=== PATIENT | female | born 1990 | race Caucasian/White ===

== ENCOUNTER 2019-06-19 14:14 | Emergency (ER) | payer OTHER, SELFPAY ==
[2019-06-19 14:20] VITALS: BP 119/73; PULSE 83; RESP 18; TEMP 36.9; O2SAT 99
--- NOTE | 2019-06-19 14:28 | DI.RAD.S_ITS ---
PROCEDURE: XR CHEST 1V INDICATIONS: SOB, palpitation TECHNIQUE: One view of the chest was acquired. COMPARISON: None. FINDINGS: Surgical changes and devices: None. Lungs and pleura: Lungs are clear. No pleural effusions or pneumothorax. There appears to be a calcified nodule within left upper lobe. Mediastinum: Mediastinal contours appear normal. Heart size is normal. Bones and chest wall: No suspicious bony lesions. Overlying soft tissues appear unremarkable. IMPRESSION: 1. No acute cardiopulmonary process is evident. 2. Calcified left upper lobe pulmonary nodule appears to be present. Dictated by: Dano Clarke M.D. on 06/19/2019 at 14:25 Approved by: Dano Clarke M.D. on 06/19/2019 at 14:25
--- NOTE | 2019-06-19 14:43 | ED.CHESTPAIN ---
HPI - Chest Pain <RENEE Nelson - Last Filed: 06/19/19 21:38> General Chief Complaint: Chest Pain Stated Complaint: chest/back/abd head pain Time Seen by Provider: 06/19/19 14:17 Source: patient Mode of arrival: Ambulatory History of Present Illness HPI narrative: 29yo female presents emergency department complaining of palpitation and shortness of breath at night starting the past 3 days. She states she was seen at [facility] on and Thursday, labs were drawn and chest x-ray was performed, she states ?I was discharged with medication that lines the stomach. She denies any worsening or changes to her symptoms states they have continued. Denies any scheduled follow-up. Patient states she feels like my heart is beating really fast and then suddenly slows down. Patient states the symptoms are worse with walking around and better with sitting down and resting. Patient states she wakes up in the middle night complaining of shortness of breath that is resolved when she sits up. She was being treated for a sinus infection last week, she states she finished her last pill amoxicillin today, she reports her sinus congestion, sore throat, and cough have resolved. She denies any fevers, chest pain, shortness of breath at this time, history of respiratory illnesses, nausea, vomiting, diarrhea, or other concerns. Patient denies any history of blood clots, she does not take any hormonal control pills, she is not a smoker. Review of Systems <RENEE Nelson - Last Filed: 06/19/19 21:38> Review of Systems Narrative: REVIEW OF SYSTEMS: GENERAL: Denies fever or chills. HENT: No head trauma, hearing loss or sore throat. EYES: No vision changes. CARDIOVASCULAR: Complains of ?has heart rate coat see HPI. RESPIRATORY: No shortness of breath or cough. GASTROINTESTINAL: No nausea, vomiting, diarrhea, or constipation. GENITOURINARY: No flank pain or dysuria. MUSCULOSKELETAL: No pain, weakness, or deformities. INTEGUMENTARY: No rash, lesions, or pruritus. NEURO: No numbness, tingling, memory loss, or confusion. PSYCH: No behavior or mood changes. Patient History <RENEE Nelson - Last Filed: 06/19/19 21:38> Medical History No significant medical problems (Acute) Social History Smoking Status: Never smoker Smoking Status: Never smoker Exam <RENEE Nelson - Last Filed: 06/19/19 21:38> Initial Vital Signs Initial Vital Signs: Vital Signs Temperature 98.4 F 06/19/19 14:20 Pulse Rate 83 06/19/19 14:20 Respiratory Rate 18 06/19/19 14:20 Blood Pressure 119/73 06/19/19 14:20 Pulse Oximetry 99 06/19/19 14:20 PHYSICAL EXAMINATION: GENERAL: Well groomed, alert, and cooperative. Answers questions promptly and appropriately. Vital signs noted. HENT: Normocephalic, atraumatic. Oral mucosa is pink and moist. EYES: Conjunctiva pink, sclera white, no periorbital swelling. CHEST: Normal to inspection and without deformities. CARDIOVASCULAR: S1 and S2 sounds normal. Regular rate and rhythm, no murmurs, clicks, or bruits. No pedal edema. RESPIRATORY: Normal respiratory rate, trachea midline, airway patent. No stridor, nasal flaring or accessory muscle use. Lungs are clear in all jenkins without wheeze, rhonchi, or crackles. GASTROINTESTINAL: Bowel sounds normoactive. Abdomen is soft and non-tender. No organomegaly. MUSCULOSKELETAL: Normal gait and coordination. Equal tone and mass bilaterally. EXTREMITIES: CMS intact. Moves all extremities. SKIN: Warm, dry, soft, appropriate color for ethnicity. No lesions, rashes, or wounds. NEURO: Alert and Oriented X 3. Good coordination. No ataxia, or sensory deficits, or cognitive issues. PSYCH: Appropriate affect and mood. <Ramesh Corrigan DO - Last Filed: 06/22/19 03:17> Initial Vital Signs Initial Vital Signs: Vital Signs Temperature 98.4 F 06/19/19 14:20 Pulse Rate 83 06/19/19 14:20 Respiratory Rate 18 06/19/19 14:20 Blood Pressure 119/73 06/19/19 14:20 Pulse Oximetry 99 06/19/19 14:20 Scores <RENEE Nelson - Last Filed: 06/19/19 21:38> PERC Score Age greater than or equal to 50 years: No Heart rate greater than or equal to 100 bpm: No Room Air O2 Sat less than 95%: No Unilateral leg swelling: No Recent trauma or surgery: No Hemoptysis: No Prior PE or DVT: No Hormone Use: No Total PERC Score: 0 Wells' Criteria for PE Clinical signs and symptoms of DVT: No PE is #1 Dx or equally likely: No Heart rate > 100: No Immobilization at least 3 days or surg in previous 4 weeks: No History of PE or DVT: No Hemoptysis: No Malignancy w/Treatment within 6 months or palliative: No Wells' PE Score total: 0 Course <RENEE Nelson - Last Filed: 06/19/19 21:38> Course Course Narrative: Patient remains symptom free throughout the emergency department stay. Orders Ordered: ED Orders 06/19/19 14:26 EKG-12 Lead Stat 06/19/19 14:28 XR chest 1V Stat 06/19/19 14:48 Complete Blood Count AUTO DIFF Stat Comprehensive Metabolic Panel Stat D Dimer Stat Troponin & CK Cardiac Panel Stat 06/19/19 15:00 Influenza A & B (PCR) Stat Consultations Consultation #1: Patient staffed with Dr. Corrigan. Vital Signs Vital signs: Vital Signs - 8 hr 06/19/19 14:20 06/19/19 15:00 06/19/19 16:03 Temperature 98.4 F Pulse Rate 83 79 75 Respiratory Rate 18 19 Blood Pressure 119/73 Blood Pressure [Left Arm] 119/73 119/73 Pulse Oximetry 99 100 <Ramesh Corrigan DO - Last Filed: 06/22/19 03:17> Orders Ordered: ED Orders 06/19/19 14:26 EKG-12 Lead Stat 06/19/19 14:28 XR chest 1V Stat 06/19/19 14:48 Complete Blood Count AUTO DIFF Stat Comprehensive Metabolic Panel Stat D Dimer Stat Troponin & CK Cardiac Panel Stat 06/19/19 15:00 Influenza A & B (PCR) Stat Vital Signs Vital signs: Vital Signs - 8 hr 06/19/19 14:20 06/19/19 15:00 06/19/19 16:03 Temperature 98.4 F Pulse Rate 83 79 75 Respiratory Rate 18 19 Blood Pressure 119/73 Blood Pressure [Left Arm] 119/73 119/73 Pulse Oximetry 99 100 MDM - Chest Pain <NHEA NelsonP - Last Filed: 06/19/19 21:38> Medical Records Data Attestation: I reviewed the patient's medical records. Lab Data Attestation: I reviewed the patient's lab results. Result diagrams: 06/19/19 14:48 06/19/19 14:48 Labs: Lab Results 06/19/19 06/19/19 06/19/19 Range/Units 14:48 14:48 14:48 WBC 4.4 L (4.5-11.0) X10^3/uL RBC 4.19 (4.0-5.2) X10^6/uL Hgb 13.2 (12.0-16.0) g/dL Hct 37.4 (36-46) % MCV 89.1 (80-100) fL MCH 31.4 (26-34) PG MCHC 35.2 (30-36) % RDW 12.9 (11.6-14.8) % Plt Count 210 (150-400) X10^3/uL Neut % (Auto) 67.6 (50-75) % Lymph % (Auto) 24.0 L (25-40) % [place] % (Auto) 7.3 (3-14) % Eos % (Auto) 0.4 L (2-4) % Baso % (Auto) 0.7 (0-2) % Neut # (Auto) 3000 (6929-0771) /uL Lymph # (Auto) 1100 (3690-1475) /uL [place] # (Auto) 300 (0-900) /uL Eos # (Auto) 0 (0-450) /uL Baso # (Auto) 0 (0-100) /uL D-Dimer < 200 (<230) ng/mL Sodium 140 (137-145) mmol/L Potassium 3.6 (3.4-5.1) mmol/L Chloride 102 (98-107) mmol/L Carbon Dioxide 31 (22-32) mmol/L BUN 9 (7-17) mg/dL Creatinine 0.60 (0.52-1.04) mg/dL Estimated GFR > 60.0 (>60) mL/min BUN/Creatinine Ratio 15.0 (6-22) Glucose 141 H (70-100) mg/dL Calcium 9.6 (8.4-10.2) mg/dL Total Bilirubin 1.2 (0.2-1.3) mg/dL AST 16 (14-36) IU/L ALT 9 (<35) IU/L Alkaline Phosphatase 38 (38-126) U/L Total Creatine Kinase 20 L (30-135) U/L CK-MB (CK-2) TNP CK-MB (CK-2) Rel Index TNP Troponin I < 0.012 (0.01-0.034) ng/mL Total Protein 7.6 (6.3-8.2) g/dL Albumin 4.5 (3.5-5.0) g/dL Globulin 3.1 (1.7-4.1) g/dL Albumin/Globulin Ratio 1.5 (1.0-2.8) Influenza A (RT-PCR) (NEGATIVE) Influenza B (RT-PCR) (NEGATIVE) 06/19/19 Range/Units 15:00 WBC (4.5-11.0) X10^3/uL RBC (4.0-5.2) X10^6/uL Hgb (12.0-16.0) g/dL Hct (36-46) % MCV (80-100) fL MCH (26-34) PG MCHC (30-36) % RDW (11.6-14.8) % Plt Count (150-400) X10^3/uL Neut % (Auto) (50-75) % Lymph % (Auto) (25-40) % [place] % (Auto) (3-14) % Eos % (Auto) (2-4) % Baso % (Auto) (0-2) % Neut # (Auto) (4459-0840) /uL Lymph # (Auto) (0852-8756) /uL [place] # (Auto) (0-900) /uL Eos # (Auto) (0-450) /uL Baso # (Auto) (0-100) /uL D-Dimer (<230) ng/mL Sodium (137-145) mmol/L Potassium (3.4-5.1) mmol/L Chloride (98-107) mmol/L Carbon Dioxide (22-32) mmol/L BUN (7-17) mg/dL Creatinine (0.52-1.04) mg/dL Estimated GFR (>60) mL/min BUN/Creatinine Ratio (6-22) Glucose (70-100) mg/dL Calcium (8.4-10.2) mg/dL Total Bilirubin (0.2-1.3) mg/dL AST (14-36) IU/L ALT (<35) IU/L Alkaline Phosphatase (38-126) U/L Total Creatine Kinase (30-135) U/L CK-MB (CK-2) CK-MB (CK-2) Rel Index Troponin I (0.01-0.034) ng/mL Total Protein (6.3-8.2) g/dL Albumin (3.5-5.0) g/dL Globulin (1.7-4.1) g/dL Albumin/Globulin Ratio (1.0-2.8) Influenza A (RT-PCR) Flu a negative (NEGATIVE) Influenza B (RT-PCR) Flu b negative (NEGATIVE) Imaging Data Chest x-ray: Radiologist's Impression: [address] [address] XRay Report Signed Patient: Elizabeth Stephens [facility]#: [id number] : 1990Acct:[id number] Age/Sex: 29 / FDate of Service: 06/19/19 Loc: ED Accession Number: [id number] Procedure: XR chest 1V Ordering Provider: Marie Estes PROCEDURE: XR CHEST 1V INDICATIONS: SOB, palpitation TECHNIQUE: One view of the chest was acquired. COMPARISON: None. FINDINGS: Surgical changes and devices: None. Lungs and pleura: Lungs are clear. No pleural effusions or pneumothorax. There appears to be a calcified nodule within left upper lobe. Mediastinum: Mediastinal contours appear normal. Heart size is normal. Bones and chest wall: No suspicious bony lesions. Overlying soft tissues appear unremarkable. IMPRESSION: 1. No acute cardiopulmonary process is evident. 2. Calcified left upper lobe pulmonary nodule appears to be present. Dictated by: Dano Clarke M.D. on 06/19/2019 at 14:25 Approved by: Dano Clarke M.D. on 06/19/2019 at 14:25 ECG Data Interpretation: Normal sinus rhythm, rate 85, GA interval 163, QTC 408. No ST elevation or ST depression. No T-wave abnormality. No ectopy. EKg was also viewed by Dr. Corrigan. MDM Narrative Medical decision making narrative: This is a 29-year-old female who presents emergency department for palpitations with increased heart rate when standing up and moving and decreased heart rate when sitting. She has been worked up for this multiple times at [facility]. Review crusted records multiple times but were unable to complete records. I am unsure the exact nature of her palpitations, this could be related to anxiety versus medication or caffeine related. However, patient denies drinking much caffeine at all. Less likely acute coronary syndrome due to negative troponin, normal EKG, and patient remained in normal sinus rhythm without deviation during cardiac monitoring in the emergency department stay. Less likely PE, Patient has a negative PERC and well's criteria score for PE, however due to return to visits and continue complaint, D-dimer was ordered. Patient was encouraged to follow up with her primary care provider for further investigation of the symptoms such as possible Holter monitor testing. Patient agreed to plan of care verbalized understanding. Strict return precautions given for new or worsening symptoms. <Ramesh Corrigan, DO - Last Filed: 06/22/19 03:17> Lab Data Labs: Lab Results 06/19/19 06/19/19 06/19/19 Range/Units 14:48 14:48 14:48 WBC 4.4 L (4.5-11.0) X10^3/uL RBC 4.19 (4.0-5.2) X10^6/uL Hgb 13.2 (12.0-16.0) g/dL Hct 37.4 (36-46) % MCV 89.1 (80-100) fL MCH 31.4 (26-34) PG MCHC 35.2 (30-36) % RDW 12.9 (11.6-14.8) % Plt Count 210 (150-400) X10^3/uL Neut % (Auto) 67.6 (50-75) % Lymph % (Auto) 24.0 L (25-40) % [place] % (Auto) 7.3 (3-14) % Eos % (Auto) 0.4 L (2-4) % Baso % (Auto) 0.7 (0-2) % Neut # (Auto) 3000 (4929-5135) /uL Lymph # (Auto) 1100 (0859-7957) /uL [place] # (Auto) 300 (0-900) /uL Eos # (Auto) 0 (0-450) /uL Baso # (Auto) 0 (0-100) /uL D-Dimer < 200 (<230) ng/mL Sodium 140 (137-145) mmol/L Potassium 3.6 (3.4-5.1) mmol/L Chloride 102 (98-107) mmol/L Carbon Dioxide 31 (22-32) mmol/L BUN 9 (7-17) mg/dL Creatinine 0.60 (0.52-1.04) mg/dL Estimated GFR > 60.0 (>60) mL/min BUN/Creatinine Ratio 15.0 (6-22) Glucose 141 H (70-100) mg/dL Calcium 9.6 (8.4-10.2) mg/dL Total Bilirubin 1.2 (0.2-1.3) mg/dL AST 16 (14-36) IU/L ALT 9 (<35) IU/L Alkaline Phosphatase 38 (38-126) U/L Total Creatine Kinase 20 L (30-135) U/L CK-MB (CK-2) TNP CK-MB (CK-2) Rel Index TNP Troponin I < 0.012 (0.01-0.034) ng/mL Total Protein 7.6 (6.3-8.2) g/dL Albumin 4.5 (3.5-5.0) g/dL Globulin 3.1 (1.7-4.1) g/dL Albumin/Globulin Ratio 1.5 (1.0-2.8) Influenza A (RT-PCR) (NEGATIVE) Influenza B (RT-PCR) (NEGATIVE) 06/19/19 Range/Units 15:00 WBC (4.5-11.0) X10^3/uL RBC (4.0-5.2) X10^6/uL Hgb (12.0-16.0) g/dL Hct (36-46) % MCV (80-100) fL MCH (26-34) PG MCHC (30-36) % RDW (11.6-14.8) % Plt Count (150-400) X10^3/uL Neut % (Auto) (50-75) % Lymph % (Auto) (25-40) % [place] % (Auto) (3-14) % Eos % (Auto) (2-4) % Baso % (Auto) (0-2) % Neut # (Auto) (9685-3161) /uL Lymph # (Auto) (2285-2445) /uL [place] # (Auto) (0-900) /uL Eos # (Auto) (0-450) /uL Baso # (Auto) (0-100) /uL D-Dimer (<230) ng/mL Sodium (137-145) mmol/L Potassium (3.4-5.1) mmol/L Chloride (98-107) mmol/L Carbon Dioxide (22-32) mmol/L BUN (7-17) mg/dL Creatinine (0.52-1.04) mg/dL Estimated GFR (>60) mL/min BUN/Creatinine Ratio (6-22) Glucose (70-100) mg/dL Calcium (8.4-10.2) mg/dL Total Bilirubin (0.2-1.3) mg/dL AST (14-36) IU/L ALT (<35) IU/L Alkaline Phosphatase (38-126) U/L Total Creatine Kinase (30-135) U/L CK-MB (CK-2) CK-MB (CK-2) Rel Index Troponin I (0.01-0.034) ng/mL Total Protein (6.3-8.2) g/dL Albumin (3.5-5.0) g/dL Globulin (1.7-4.1) g/dL Albumin/Globulin Ratio (1.0-2.8) Influenza A (RT-PCR) Flu a negative (NEGATIVE) Influenza B (RT-PCR) Flu b negative (NEGATIVE) Discharge Plan Departure Patient Disposition: Home Clinical Impression: Palpitation Discharge Date/Time: 06/19/19 16:30 Instructions: DI for Palpitations Activity Restrictions/Additional Instructions: Thank you for entrusting me with your care today. As discussed, your laboratory work is non remarkable. I am unsure the exact cause of your palpitations. Please discontinue any use of caffeine or stimulants such as Sudafed. Follow up with your primary care provider in 1-2 weeks for further evaluation and discussion about wearing Holter monitor. Return emergency department for any new or worsening symptoms such as syncope, high fevers that are not reduced with Tylenol or ibuprofen, chest pain, severe abdominal pain, or other concerns.
[2019-06-19 15:00] VITALS: BP 119/73; PULSE 79; RESP 19
[2019-06-19 15:06] LABS: Add Manual Diff / Slide Review NO; Basophils Absolute Auto 0 /uL (0-100); Basophils Percent Auto 0.7 % (0-2); Eosinophils Absolute Auto 0 /uL (0-450); Eosinophils Percent Auto 0.4 % (2-4); Hematocrit 37.4 % (36-46); Hemoglobin 13.2 g/dL (12.0-16.0); Lymphocytes Absolute Auto 1100 /uL (1100-4500); Mean Corpuscular HGB Conc 35.2 % (30-36); Mean Corpuscular Hemoglobin 31.4 PG (26-34); Mean Corpuscular Volume 89.1 fL (80-100); Monocytes Absolute Auto 300 /uL (0-900); Monocytes Percent Auto 7.3 % (3-14); Neutrophils Absolute Auto 3000 /uL (1500-7000); Neutrophils Percent Auto 67.6 % (50-75); Platelet Count 210 X10^3/uL (150-400); Red Blood Cell Count 4.19 X10^6/uL (4.0-5.2); Red Cell Distribution Width 12.9 % (11.6-14.8); White Blood Cell Count 4.4 X10^3/uL (4.5-11.0)
[2019-06-19 15:18] LABS: Alanine Aminotransferase 9 IU/L (<35); Albumin 4.5 g/dL (3.5-5.0); Albumin Globulin Ratio 1.5 (1.0-2.8); Alkaline Phosphatase 38 U/L (38-126); Aspartate Aminotransferase 16 IU/L (14-36); Bilirubin Total 1.2 mg/dL (0.2-1.3); Blood Urea Nitrogen 9 mg/dL (7-17); Calcium 9.6 mg/dL (8.4-10.2); Carbon Dioxide 31 mmol/L (22-32); Chloride 102 mmol/L (98-107); Creatine Kinase 20 U/L (30-135); Estimated Glomerular Filt Rate > 60.0 mL/min (>60); Globulin 3.1 g/dL (1.7-4.1); Glucose 141 mg/dL (70-100); HEMOLYSIS < 15 (0-50); Potassium 3.6 mmol/L (3.4-5.1); Sodium 140 mmol/L (137-145); Total Protein 7.6 g/dL (6.3-8.2)
[2019-06-19 15:20] LABS: D Dimer < 200 ng/mL (<230)
[2019-06-19 15:30] LABS: Troponin I < 0.012 ng/mL (0.01-0.034)
[2019-06-19 15:45] LABS: Influenza A - CEPHEID Flu A NEGATIVE (NEGATIVE); Influenza B - CEPHEID Flu B NEGATIVE (NEGATIVE)
[2019-06-19 16:03] VITALS: BP 119/73; PULSE 75; O2SAT 100
== END 2019-06-19 16:30 | disposition home or self-care (01) ==
PROVIDERS: Emergency Provider Nurse Practitioner
DX: R00.2 Palpitations (principal); R06.02 Shortness of breath
CPT/HCPCS: 36415; 71045; 80053; 82550; 84484; 85025; 85379; 87502; 93005; 99284; 99285

== ENCOUNTER 2019-06-27 23:11 | Emergency (ER) | payer OTHER, SELFPAY ==
[2019-06-27 23:19] VITALS: BP 107/66; PULSE 85; RESP 16; TEMP 36.7; O2SAT 100; BMI 25.0
--- NOTE | 2019-06-28 04:42 | ED_ITS ---
HPI - Headache General Chief Complaint: Headache Stated Complaint: Headache Time Seen by Provider: 06/28/19 04:42 Source: patient Mode of arrival: EMS Limitations: no limitations History of Present Illness HPI Narrative: 29-year-old female comes in with complaint of headache which she states has been present for several days. She also has some chest pain and shortness of breath which has been going on for several weeks. Patient states she had a syncopal episode several days ago. She denies fevers. She has had some upper respiratory cold cough congestive symptoms which she states have resolved but lasted for several weeks. She has had nausea but no vomiting. She denies abdominal pain. She denies any black or bloody stools. She denies any urinary frequency, dysuria urgency. Patient states that she has had some pain in her extremities but denies numbness or weakness. Patient denies any medical problems she denies any cardiac problems she states she does have a monitor on. Patient did not mention initially but she was seen twice at [facility] recently and had a lumbar puncture as well as CTA of her chest and head CT with non con which were all negative. Patient states headache is worse when she lays flat she does not appreciate that it is worsened after her lumbar puncture. Related Data Previous Rx's Medication Instructions Recorded qlgzfoailp-zciywsllwdxic-lbwi 1 cap PO Q6H PRN #10 cap 06/28/19 [Fioricet] Allergies Allergy/AdvReac Type Severity Reaction Status Date / Time No Known Drug Allergies Allergy Verified 06/27/19 23:24 Review of Systems Review of Systems ROS Unobtainable: All systems reviewed & are unremarkable except as noted in HPI and below Patient History Medical History No significant medical problems (Acute) Social History Smoking Status: Never smoker Smoking Status: Never smoker alcohol intake frequency: 0-2 drinks per day Substance Use Type: does not use Exam Narrative Exam Narrative: GEN: well nourished, well appearing female, alert and oriented x 3, patient appears to be in mild distress. HEENT: Atraumatic, pupils are equal round reactive to light, extraocular movements are intact, no photophobia, nares are clear, TMs are clear with no fluid, there is no conjunctival pallor. Throat is clear without any exudates, erythema, tonsillar enlargement or uvular deviation, no meningeal signs. HEART: Regular rate and rhythm without murmur, clicks, rubs. No carotid bruits, pulses are equal in upper and lower extremities LUNGS:Lungs clear to auscultation, no wheezes, rales, crackles, chest moves symmetrically ABD:bowel sounds normal, soft, non-tender, no guarding, rebound, rigidity, no masses noted, no hepatosplenomegaly :No CVA tenderness MSCL: Non-tender, no muscle atrophy, muscles strength 5/5 upper and lower extremities, full range of motion NEURO:CN 2-12 intact, sensation normal. finger nose finger test normal, heel swenson test normal, romberg normal SKIN: No rash, erythema or petechiae. Initial Vital Signs Initial Vital Signs: Vital Signs Temperature 98.0 F 06/27/19 23:19 Pulse Rate 85 06/27/19 23:19 Respiratory Rate 16 06/27/19 23:19 Blood Pressure 107/66 06/27/19 23:19 Pulse Oximetry 100 06/27/19 23:19 Course Orders Ordered: ED Orders 06/28/19 05:03 CT angio head and neck Stat EKG-12 Lead Stat 06/28/19 05:25 Complete Blood Count AUTO DIFF Stat Comprehensive Metabolic Panel Stat Test Serum,Qual Stat Troponin & CK Cardiac Panel Stat Discontinued Medications Sodium Chloride (Normal Saline 0.9%) 1,000 mls @ 1,000 mls/hr IV BOLUS ONE Stop: 06/28/19 06:02 Last Admin: 06/28/19 05:14 Dose: 1,000 mls/hr Documented by: IRENA Metoclopramide HCl (Reglan) 10 mg IV NOW ONE Stop: 06/28/19 05:04 Last Admin: 06/28/19 05:14 Dose: 10 mg Documented by: IRENA Vital Signs Vital signs: Vital Signs - 8 hr 06/27/19 23:19 Temperature 98.0 F Pulse Rate 85 Respiratory Rate 16 Blood Pressure 107/66 Pulse Oximetry 100 MDM - Headache Lab Data Attestation: I reviewed the patient's lab results. Result diagrams: 06/28/19 05:25 06/28/19 05:25 Labs: Lab Results 06/28/19 06/28/19 06/28/19 Range/Units 05:25 05:25 05:25 WBC 6.4 (4.5-11.0) X10^3/uL RBC 4.27 (4.0-5.2) X10^6/uL Hgb 13.3 (12.0-16.0) g/dL Hct 37.6 (36-46) % MCV 88.2 (80-100) fL MCH 31.1 (26-34) PG MCHC 35.3 (30-36) % RDW 12.9 (11.6-14.8) % Plt Count 192 (150-400) X10^3/uL Neut % (Auto) 61.7 (50-75) % Lymph % (Auto) 29.0 (25-40) % [place] % (Auto) 8.1 (3-14) % Eos % (Auto) 0.6 L (2-4) % Baso % (Auto) 0.6 (0-2) % Neut # (Auto) 4000 (4587-6116) /uL Lymph # (Auto) 1900 (1641-1270) /uL [place] # (Auto) 500 (0-900) /uL Eos # (Auto) 0 (0-450) /uL Baso # (Auto) 0 (0-100) /uL Sodium 138 (137-145) mmol/L Potassium 3.8 (3.4-5.1) mmol/L Chloride 104 (98-107) mmol/L Carbon Dioxide 23 (22-32) mmol/L BUN 6 L (7-17) mg/dL Creatinine 0.60 (0.52-1.04) mg/dL Estimated GFR > 60.0 (>60) mL/min BUN/Creatinine Ratio 10.0 (6-22) Glucose 81 (70-100) mg/dL Calcium 9.5 (8.4-10.2) mg/dL Total Bilirubin 1.5 H (0.2-1.3) mg/dL AST 14 (14-36) IU/L ALT 8 (<35) IU/L Alkaline Phosphatase 43 (38-126) U/L Total Creatine Kinase 23 L (30-135) U/L CK-MB (CK-2) TNP CK-MB (CK-2) Rel Index TNP Troponin I < 0.012 (0.01-0.034) ng/mL Total Protein 7.3 (6.3-8.2) g/dL Albumin 4.3 (3.5-5.0) g/dL Globulin 3.0 (1.7-4.1) g/dL Albumin/Globulin Ratio 1.4 (1.0-2.8) Serum , Qual Negative (Negative) Imaging Data CT scan - head: Radiologist's Impression: CTA head shows unremarkable CT of head and neck. ECG Data Attestation: I personally reviewed and interpreted this ECG as follows: Prior ECG tracings: available for review Interpretation: Sinus rhythm with sinus arrhythmia rate 91 P are 140 QRS of 90 and QTC of 430. No acute ST changes noted. Right axis deviation. Patient has prior EKG from 06/19/2019 that appears similar MDM Narrative Medical decision making narrative: Patient comes in with complaint of headache. She had a head CT non-con which was negative, a lumbar puncture which was negative and results were obtained. Patient has had a CTA of her chest which was negative for PE with no other major findings. Labs did not show major abnormalities. Discussed with patient we can do a CTA to check for aneurysm, lumbar puncture along with a negative head CT which was nondiagnostic for subarachnoid as well as meningitis. Patient does not have a history of migraines. With her sensation and pain we can do a CTA to check for aneurysm that has not had any bleeding. Patient was given fluids as well as a dose of Reglan here in the department and on recheck patient is feeling better and feels like her headache has resolved. Reviewed findings with negative CTA, no major lab abnormalities and extensive workup [facility] in the last several days. Given rx for fiorecet and return precautions. Discharge Plan Departure Patient Disposition: Home Clinical Impression: Headache Instructions: DI for Headache Activity Restrictions/Additional Instructions: Follow up with your physician, call for an appointment. Your imaging and labs do not show acute changes today. Take medications as prescribed. Return for fevers greater 100.4 F, new vision changes, passing out, new alterations in chest pain or shortness of breath, persistent vomiting, new weakness, numbness or difficulty with movement, loss of bowel or bladder control or other new or concerning symptoms. Prescriptions: New tuvuakjexe-[id number]-djyv [Fioricet] 50-300-40 mg capsule 1 cap PO Q6H PRN (Reason: pain) Qty: 10 RF: 0
--- NOTE | 2019-06-28 05:03 | DI.CT.S_ITS ---
PROCEDURE: CT ANGIO HEAD AND NECK INDICATIONS: headache, several days, no fever, pressure, rushing feeling TECHNIQUE: Pre-contrast 4.5 mm thick sections acquired from the foramen magnum to the vertex. After the administration of intravenous contrast, 1 mm thick sections acquired from the aortic arch through the [place]. Post-contrast 4.5 mm thick sections then re-acquired from the foramen magnum to the vertex. 3-dimensional eayptfh-wkepjuqzd-qkezeufbbq (MIP) and/or volume rendering reformats were acquired of the central intracranial vasculature and neck separately. COMPARISON: None. FINDINGS: Image quality: Excellent. BRAIN: CSF spaces: Ventricles are normal in size and shape. Basal cisterns are patent. No extra-axial fluid collections. Brain: No midline shift. No intracranial bleeds or masses. Reaves-white matter interface appears intact. Skull and face: Calvarium and facial bones appear intact, without suspicious lesions. Orbits appear normal. Sinuses: Sinuses and mastoids are clear. HEAD CT ANGIOGRAPHY: Anterior circulation: Intracranial internal carotid arteries are normal in size and flow. The flow within the paired anterior cerebral arteries is normal and symmetric. The flow within the middle cerebral arteries is normal and symmetric. The anterior communicating artery is seen. No aneurysms are seen. Posterior circulation: Visualized portions of the vertebral arteries demonstrate normal caliber, and join to form a normal appearing basilar artery. Flow within the posterior cerebral arteries is normal and symmetric. No aneurysms are seen. Dural sinuses demonstrate normal postcontrast enhancement. NECK CT ANGIOGRAPHY: Carotid system: The great vessels demonstrate a conventional anatomy as they arise from the aortic arch. The origins of the common carotid arteries appear patent. The common carotid arteries demonstrate normal caliber and courses. The bifurcation regions are both widely patent. The internal carotid arteries demonstrate normal calibers and courses. Posterior circulation: The origins of the vertebral arteries both appear widely patent. The more superior extracranial portions of both vertebral arteries also demonstrate normal courses and calibers. They join to form a normal appearing basilar artery. Soft tissues: Visualized neck soft tissues demonstrate no suspicious abnormalities. Bones: No suspicious bony lesions. Visualized cervical spine appears normally aligned. IMPRESSION: 1. No acute intracranial disease process. 2. No large vessel occlusion, vascular stenosis, vascular dissection or aneurysm. Any quantitative measurements of stenosis were performed using NASCET criteria. Dictated by: Buffy Sahu MD, PhD on 06/28/2019 at 8:33 Approved by: Buffy Sahu MD, PhD on 06/28/2019 at 8:42
[2019-06-28] MEDS: METOCLOPRAMIDE 10 MG/2 ML INJ IV (05:14)
[2019-06-28] MEDS: SODIUM CHLORIDE 0.9% 1,000 ML 1000 ML IV (05:14)
[2019-06-28 05:36] LABS: Add Manual Diff / Slide Review NO; Basophils Absolute Auto 0 /uL (0-100); Basophils Percent Auto 0.6 % (0-2); Eosinophils Absolute Auto 0 /uL (0-450); Eosinophils Percent Auto 0.6 % (2-4); Hematocrit 37.6 % (36-46); Hemoglobin 13.3 g/dL (12.0-16.0); Lymphocytes Absolute Auto 1900 /uL (1100-4500); Mean Corpuscular HGB Conc 35.3 % (30-36); Mean Corpuscular Hemoglobin 31.1 PG (26-34); Mean Corpuscular Volume 88.2 fL (80-100); Monocytes Absolute Auto 500 /uL (0-900); Monocytes Percent Auto 8.1 % (3-14); Neutrophils Absolute Auto 4000 /uL (1500-7000); Neutrophils Percent Auto 61.7 % (50-75); Platelet Count 192 X10^3/uL (150-400); Red Blood Cell Count 4.27 X10^6/uL (4.0-5.2); Red Cell Distribution Width 12.9 % (11.6-14.8); White Blood Cell Count 6.4 X10^3/uL (4.5-11.0)
[2019-06-28 05:41] LABS: Alanine Aminotransferase 8 IU/L (<35); Albumin 4.3 g/dL (3.5-5.0); Albumin Globulin Ratio 1.4 (1.0-2.8); Alkaline Phosphatase 43 U/L (38-126); Aspartate Aminotransferase 14 IU/L (14-36); Bilirubin Total 1.5 mg/dL (0.2-1.3); Blood Urea Nitrogen 6 mg/dL (7-17); Calcium 9.5 mg/dL (8.4-10.2); Carbon Dioxide 23 mmol/L (22-32); Chloride 104 mmol/L (98-107); Creatine Kinase 23 U/L (30-135); Estimated Glomerular Filt Rate > 60.0 mL/min (>60); Glucose 81 mg/dL (70-100); HEMOLYSIS < 15 (0-50); Potassium 3.8 mmol/L (3.4-5.1); Sodium 138 mmol/L (137-145); Total Protein 7.3 g/dL (6.3-8.2)
[2019-06-28 05:53] LABS: Troponin I < 0.012 ng/mL (0.01-0.034)
[2019-06-28 06:19] LABS: Pregnancy Test Serum,Qual Negative (Negative)
[2019-06-28 08:02] VITALS: BP 108/60; PULSE 90; RESP 13; O2SAT 99
== END 2019-06-28 08:05 | disposition home or self-care (01) ==
PROVIDERS: Emergency Provider Emergency Medicine
DX: R51 Headache (principal); R07.9 Chest pain, unspecified; R06.02 Shortness of breath
CPT/HCPCS: 36415; 70496; 70498; 80053; 82550; 84484; 84703; 85025; 93005; 96361; 96374; 99284; 99285; J2765; Q9967

== ENCOUNTER → 2019-07-11 18:42 | Outpatient (CLI) | payer OTHER, SELFPAY ==
--- NOTE | 2019-07-11 | DI.MRI.S_ITS ---
PROCEDURE: MR HEAD/BRAIN WO CON INDICATIONS: Headache TECHNIQUE: Noncontrast axial T1 spin echo, axial T2 fast spin echo, sagittal and axial FLAIR, coronal T2 fast spin echo, axial gradient echo, axial diffusion and ADC through the brain. COMPARISON: None. FINDINGS: Image quality: Excellent. CSF Spaces: Basal cisterns are patent. No extra-axial fluid collections. Ventricles are normal in size and shape. Brain: No intracranial masses or hemorrhage. Reaves/white matter interface is normal. Brainstem appears normal. Diffusion-weighted images demonstrate no acute ischemic insult. No chronic ischemic insults. Normal intravascular flow voids are present. Skull and face: Calvarium has normal marrow signal. Orbits appear normal. Sinuses: Sinuses and mastoids are clear. IMPRESSION: 1. No acute intracranial abnormality. 2. No explanation for headache. Dictated by: Ivy Langford M.D. on 07/12/2019 at 10:02 Approved by: Ivy Langford M.D. on 07/12/2019 at 10:04
== END ==
PROVIDERS: PCP Physician Assistant; Referring Provider Physician Assistant; Visit Provider Physician Assistant
DX: R51 Headache (principal)
CPT/HCPCS: 70551

== ENCOUNTER → 2019-07-18 14:40 | Outpatient (CLI) | payer OTHER, SELFPAY ==
--- NOTE | 2019-07-18 14:43 | DI.US.S_ITS ---
PROCEDURE: US ABDOMEN LIMITED INDICATIONS: POSTPRANDIAL ABD PAIN TECHNIQUE: Real-time focused scanning was performed of the abdomen, with image documentation. COMPARISON: None. FINDINGS: The liver measures 16.7 cm in length. Echogenic lesion in the left lobe measures 1.3 x 1.3 x 1.1 cm. Gallbladder unremarkable. No intra-or extrahepatic bile duct dilatation. Partially visualized pancreas unremarkable, however the head and tail not well-seen IMPRESSION: Echogenic left hepatic lesion, possibly cavernous hemangioma although technically nonspecific in the absence of prior studies, and recommend initial followup in 6 months. Dictated by: Frank Kumar M.D. on 07/18/2019 at 17:55 Approved by: Frank Kumar M.D. on 07/18/2019 at 17:58
--- NOTE | 2019-07-18 14:43 | DI.US.S_ITS ---
PROCEDURE: US THYROID INDICATIONS: THROID TENDERNESS, RT SIDE ENLARGMENT TECHNIQUE: Real-time scanning was performed of the thyroid gland, with image documentation. COMPARISON: None. FINDINGS: Right: Thyroid lobe measures 5.2 x 1.5 x 1.8 cm, and is homogeneous in echotexture. Left: Thyroid lobe measures 5.2 x 1.1 x 1.5 cm, and is homogenous in echotexture. Isthmus: 2 mm thick. Nodule number: 1 Location: Left mid lobe Size: 0.6 x 0.3 x 0.3 cm. Composition: Cystic Echogenicity: Anechoic Shape: wider than tall. Margins: Smooth Echogenic foci: Punctate Total points: 3 ACR TI-RADS category: Mildly suspicious IMPRESSION: Mildly suspicious left mid lobe cystic lesion. Recommend continued sonographic surveillance as below ACR TI-RADS definitions and recommendations: TI-RADS 1 (benign): 0 points. FNA not needed. TI-RADS 2 (not suspicious): 2 points. FNA not needed. TI-RADS 3 (mildly suspicious): 3 points. * FNA if 2.5 cm or larger, follow up if 1.5 cm or larger (at 1, 3, and 5 years). TI-RADS 4 (moderately suspicious): 4-6 points. * FNA if 1.5 cm or larger, follow up if 1 cm or larger (at 1, 2, 3, and 5 years). TI-RADS 5 (highly suspicious): 7 points or more. * FNA if 1 cm or larger, follow up if 0.5 cm or larger (every year for 5 years). Dictated by: Frank Kumar M.D. on 07/18/2019 at 17:51 Approved by: Frank Kumar M.D. on 07/18/2019 at 17:53
== END ==
PROVIDERS: PCP Physician Assistant; Referring Provider Surgery; Visit Provider Surgery
DX: E04.1 Nontoxic single thyroid nodule (principal); R59.0 Localized enlarged lymph nodes; R10.84 Generalized abdominal pain; K76.9 Liver disease, unspecified
CPT/HCPCS: 76536; 76705

== ENCOUNTER → 2019-08-01 08:51 | Outpatient (CLI) | payer OTHER, SELFPAY ==
--- NOTE | 2019-08-01 08:53 | DI.NM.S_ITS ---
PROCEDURE: NM HIDA WITH CCK PHARMACEUTICAL: 5.0 mCi Tc-99m mebrofenin IV; 1.4 mcg CCK IV. INDICATIONS: Rule out biliary dyskinesia TECHNIQUE: Following intravenous administration of Tc-99m mebrofenin, sequential anterior abdominal images were obtained. To evaluate the contractile response of the gallbladder in response to Cholecystokinin (CCK), sincalide (0.02 ?g/kg) was administered by slow intravenous infusion approximately 60 minutes after the administration of the radiopharmaceutical. Sequential imaging was continued for 30 minutes after the start of CCK infusion. Gallbladder ejection fraction was calculated. COMPARISON: [facility], ABDOMEN LIMITED, 07/18/2019, 15:03. FINDINGS: Biliary scan: There is normal tracer uptake and excretion by the liver. There is normal visualization of the intrahepatic ducts, common bile duct, and gallbladder. There is normal tracer transit into the duodenum. CCK stimulation: There is contractile response of the gallbladder to CCK infusion. The calculated gallbladder ejection fraction is 73%; normal values are above 35%. It has been shown that any patient abdominal pain after CCK administration is related to the rate of CCK injection, rather than to any underlying gallbladder disease (Clinical Nuclear Medicine 2012; 37: 63-70. Journal of Nuclear Medicine 2014; 55: 1-9). IMPRESSION: Normal ejection fraction. Dictated by: More Abdalla M.D. on 08/01/2019 at 13:25 Approved by: More Abdalla M.D. on 08/01/2019 at 13:26
== END ==
PROVIDERS: PCP Physician Assistant; Referring Provider Surgery; Visit Provider Surgery
DX: R10.84 Generalized abdominal pain (principal); R11.0 Nausea
CPT/HCPCS: 78227; A9537; J2805

== ENCOUNTER → 2019-08-02 12:00 | Outpatient (CLI) | payer OTHER, SELFPAY ==
--- NOTE | 2019-08-02 08:32 | DI.US.S_ITS ---
PROCEDURE: US SOFT TISSUE HEAD AND NECK INDICATIONS: CERVICAL LYMPHADENOPATHY TECHNIQUE: Real-time scanning was performed of the neck region of interest, with image documentation. COMPARISON: None. FINDINGS: No cervical lymphadenopathy or other neck abnormality seen. IMPRESSION: No adenopathy. Dictated by: Kyrie CARVALHO Interpreted: Frank Kumar MD on 08/02/2019 at 9:06 Approved by: Frank Kumar M.D. on 08/02/2019 at 12:20
== END ==
PROVIDERS: PCP Physician Assistant; Referring Provider Surgery; Visit Provider Surgery
DX: R59.0 Localized enlarged lymph nodes (principal)
CPT/HCPCS: 76536

== ENCOUNTER → 2020-02-20 15:13 | Outpatient (CLI) | payer OTHER, SELFPAY ==
--- NOTE | 2020-02-20 | DI.MG.S_ITS ---
BILATERAL DIGITAL DIAGNOSTIC MAMMOGRAM 3D/2D: 02/20/2020 CLINICAL: Mass, chest wall. No prior exams were available for comparison. The tissue of both breasts is heterogeneously dense. This may lower the sensitivity of mammography. No significant masses, calcifications, or other findings are seen in either breast. IMPRESSION: BENIGN There is no abnormality seen in the right breast to correspond with the area of clinical concern and palpable abnormality indicated by triangular marker in the far posterior depth in the upper aspect of the right chest which was outside the patient's breast tissue on today's evaluation. This will be further evaluated by an ultrasound of the chest wall. This exam was interpreted at Station ID: [id number]. NOTE: For mammograms, a report in lay terms will be sent to the patient. Approximately 15% of breast malignancies will not be visualized mammographically. In the management of a palpable breast mass, a negative mammogram must not discourage biopsy of a clinically suspicious lesion. Electronically Signed By: Charli Beltre M.D. aty/:02/20/2020 17:31:58 ACR BI-RADS Category 2: Benign Finding(s) 3342F
--- NOTE | 2020-02-20 | DI.US.S_ITS ---
PROCEDURE: US CHEST WALL COMPARISON: [facility], CR, XR CHEST 1V, 06/19/2019, 14:45. INDICATIONS: Mass FINDINGS: Ultrasound was performed in the area of interest. No mass is identified in the area of concern. IMPRESSION: No mass is identified on ultrasound. If clinical symptoms persist or clinical suspicion for pathology is high, CT or MRI is suggested for further evaluation. Dictated by: Hugh Bautista M.D. on 02/20/2020 at 18:00 Approved by: Hugh Bautista M.D. on 02/20/2020 at 18:03
== END ==
PROVIDERS: PCP Physician Assistant; Referring Provider Physician Assistant; Visit Provider Physician Assistant
DX: R92.2 Inconclusive mammogram (principal); R22.2 Localized swelling, mass and lump, trunk
CPT/HCPCS: 76604; 77066; G0279

== ENCOUNTER 2023-03-01 09:43 | Emergency (ER) | payer OTHER, SELFPAY ==
[2023-03-01 09:51] VITALS: BP 122/74; PULSE 79; RESP 16; TEMP 36.8; O2SAT 99; BMI 36.3
--- NOTE | 2023-03-01 11:09 | ED.UPPEXIN ---
HPI - Extremity Injury (Upper) <Vince Black PA-C - Last Filed: 03/01/23 11:19> General Chief Complaint: Extremity Injury, Upper Stated Complaint: RT shoulder pain getting worse Time Seen by Provider: 03/01/23 11:05 History of Present Illness HPI narrative: This is a 32-year-old female presents emergency department due to right shoulder pain has affected her for years but worsened over the last couple of months. She states she felt a sharp pain yesterday and decided to come to the emergency department. She states she does report a little bit of numbness which for wakes up in the morning in her bilateral hands which usually improves throughout the day. Denies any decreased range of motion although sometimes range of motion limited by pain. States this is somewhat chronic issue and she is not seen her primary care provider or physical therapy about this. No trauma to the shoulder. Related Data Home Medications Medication Instructions Recorded Confirmed acetaminophen 325 mg capsule 325 mg PO ONCE PRN 07/14/19 07/14/19 (Tylenol) Previous Rx's Medication Instructions Recorded imvrknuxoz-setrrgnqtssyz-xnbnaewc 1 cap PO Q6H PRN pain #10 caps 06/28/19 50 mg-300 mg-40 mg capsule (Fioricet) Allergies Allergy/AdvReac Type Severity Reaction Status Date / Time No Known Drug Allergies Allergy Verified 07/14/19 15:01 Review of Systems <MACKENZIE Wells Last Filed: 03/01/23 11:19> Review of Systems Narrative: GENERAL: Denies chills, fatigue, malaise, fever, sweats. HEENT: Denies sinus pain, ear pain, sore throat, difficulty swallowing, dizziness. RESPIRATORY: Denies dyspnea, cough, wheezing, hemoptysis, sputum. CARDIOVASCULAR: Denies chest pain, palpitations, orthopnea, edema, GASTROINTESTINAL: Denies nausea, vomiting, abdominal pain, diarrhea, constipation, melena. : Denies dysuria, frequency, incontinence, hematuria, urinary retention. MUSCULOSKELETAL: Reports right shoulder pain SKIN: Denies rash, skin lesions, or other NEUROLOGIC: Denies weakness, headache, numbness, change in speech, confusion, seizures, incoordination. PSYCHIATRIC: No concerning psychosocial issues. 12 point review of systems is negative except for those stated above Patient History <Vince Black PA-C - Last Filed: 03/01/23 11:19> Medical History (Updated 03/01/23 @ 11:19 by Vince Black PA-C) Normal colonoscopy Chronic pain No significant medical problems Surgical History [place] teeth removed H/O adenoidectomy Hx of tonsillectomy Family History Grandmother Cancer Social History Smoking Status: Never smoker Smoking Status: Never smoker alcohol intake frequency: 0-2 drinks per day Substance Use Type: does not use Exam <Vince Black PA-C - Last Filed: 03/01/23 11:19> Narrative Exam Narrative: GENERAL: Well-developed patient, in mild distress. HEAD: Atraumatic. Normocephalic. EYES: Pupils equal round and reactive. Extraocular motions intact. No scleral icterus. No injection or drainage. ENT: Nose without bleeding, purulent drainage. Throat without erythema, tonsillar hypertrophy or exudate. Airway patent. NECK: Trachea midline. Non tender CARDIOVASCULAR: Regular rate and rhythm without murmurs, gallops, or rubs. RESPIRATORY: Clear to auscultation. Breath sounds equal bilaterally. No wheezes, rales, or rhonchi. GASTROINTESTINAL: Abdomen soft, non-tender, nondistended. EXTREMITIES: Mild anterior right shoulder tenderness to palpation BACK: Nontender without deformity or crepitance. No flank tenderness. NEURO: AOx3. SKIN: No rash or erythema of visible areas Initial Vital Signs Initial Vital Signs: Vital Signs Temperature 98.2 F 03/01/23 09:51 Pulse Rate 79 03/01/23 09:51 Respiratory Rate 16 03/01/23 09:51 Blood Pressure 122/74 03/01/23 09:51 Pulse Oximetry 99 03/01/23 09:51 Oxygen Delivery Method Room Air 03/01/23 09:51 <Rufina Villalba DO - Last Filed: 03/01/23 17:09> Initial Vital Signs Initial Vital Signs: Vital Signs Temperature 98.2 F 03/01/23 09:51 Pulse Rate 79 03/01/23 09:51 Respiratory Rate 16 03/01/23 09:51 Blood Pressure 122/74 03/01/23 09:51 Pulse Oximetry 99 03/01/23 09:51 Oxygen Delivery Method Room Air 03/01/23 09:51 Course <Vince Black PA-C - Last Filed: 03/01/23 11:19> Orders Ordered: Discontinued Medications Ketorolac Tromethamine (Ketorolac 30 Mg/Ml Vial) 15 mg IM NOW ONE Stop: 03/01/23 11:16 Last Admin: 03/01/23 11:22 Dose: 15 mg Documented By: TC Vital Signs Vital signs: Vital Signs - 8 hr 03/01/23 09:51 03/01/23 11:26 Temperature 98.2 F 97.6 F Pulse Rate 79 79 Respiratory Rate 16 16 Blood Pressure 122/74 117/89 Pulse Oximetry 99 100 Oxygen Delivery Method Room Air Room Air <Rufina Villalba DO - Last Filed: 03/01/23 17:09> Orders Ordered: Discontinued Medications Ketorolac Tromethamine (Ketorolac 30 Mg/Ml Vial) 15 mg IM NOW ONE Stop: 03/01/23 11:16 Last Admin: 03/01/23 11:22 Dose: 15 mg Documented By: TC Vital Signs Vital signs: Vital Signs - 8 hr 03/01/23 09:51 03/01/23 11:26 Temperature 98.2 F 97.6 F Pulse Rate 79 79 Respiratory Rate 16 16 Blood Pressure 122/74 117/89 Pulse Oximetry 99 100 Oxygen Delivery Method Room Air Room Air MDM - Extremity Injury (Upper) <Vince Black PA-C - Last Filed: 03/01/23 11:19> MDM Narrative Medical decision making narrative: MDM * differential diagnosis includes but not limited to humerus fracture, clavicle fracture, rotator cuff injury, DVT, nerve injury * Prior records reviewed: Patient was last seen here 3 years ago due to headache * My lab interpretation: None obtained * My imgaing interpretation: None obtained * Clinical Decision Rules/Scores evaluated: None * Independent discussions with: None ED Course: This is a 32-year-old female presents emergency department due to suspected rotator cuff injury which sounds similar chronic for her. No trauma to the area and shared decision-making was utilized and no x-rays ordered. Patient not have any unilateral swelling for concerning for any kind of spontaneous DVT. Suspect muscular cause of pain in nature. Recommend patient is speak with the primary care provider for a referral to physical therapy. IM Toradol given today in the emergency department. Recommended symptomatic and conservative measures. Shared Decision Making: Discussed plan with patient who is comfortable with the plan. Social Considerations: None Disposition: Discharged to home. Discharge Plan Departure Patient Disposition: Home Clinical Impression: Injury of muscle of rotator cuff Instructions: DI for Shoulder Sprain Activity Restrictions/Additional Instructions: Thank you for coming to the [facility] Emergency Department today. As we discussed I do not believe that we need x-rays to check for any kind of fractures. I strongly recommended follow up with the primary care provider for referral to physical therapy as they are the best people to treat these kind of injuries. I hope you feel better soon. Please follow up with your primary care provider within a week if your symptoms continue. If you do not have a primary care provider please contact the [facility] Resource line at [phone]. They will ask some questions about your medical history and help you get set up with a provider in the community. Prescriptions: No Action acetaminophen [Tylenol] 325 mg capsule 325 mg PO ONCE PRN uypemzwxsx-flmvbgwiefyvw-jqgn [Fioricet] 50-300-40 mg capsule 1 cap PO Q6H PRN (Reason: pain) Qty: 10 0RF Referrals: Maria Meyer ARNP [Primary Care Provider] - Stand Alone Forms: Patient Portal/API ED Sign-out <Rufina Villalba DO - Last Filed: 03/01/23 17:09> [place] ED Attending Robb Attestation: I was immediately available in the department for consultation. Documentation has been reviewed.
[2023-03-01] MEDS: KETOROLAC 30 MG/ML VIAL 15 MG IM (11:22)
[2023-03-01 11:26] VITALS: BP 117/89; PULSE 79; RESP 16; TEMP 36.4; O2SAT 100
== END 2023-03-01 11:31 | disposition home or self-care (01) ==
PROVIDERS: Emergency Provider Physician Assistant Medical; PCP Nurse Practitioner
DX: S46.001A Unspecified injury of muscle(s) and tendon(s) of the rotator cuff of right shoulder, initial encounter (principal)
CPT/HCPCS: 96372; 99283; J1885

== ENCOUNTER 2023-06-26 16:00 | Outpatient (RCR) | payer OTHER, SELFPAY ==
--- NOTE | 2023-06-03 17:09 | PT.OIE ---
Current Diagnoses Pain in right shoulder (06/03/23) Cervicalgia (06/03/23) Abnormal posture (06/03/23) Weakness (06/03/23) Past Medical History (Last Reviewed 07/14/19 @ 17:29 by Tita Solorio MD) Chronic pain No significant medical problems Normal colonoscopy Past Surgical History (Last Reviewed 07/14/19 @ 17:29 by Tita Solorio MD) H/O adenoidectomy Hx of tonsillectomy [place] teeth removed Visit Care Team Role Provider Type RENEE Smith Attending Provider Non-Staff Family Provider Primary Care Provider Referring Provider Specialty: Nursing Address: [facility] [address], [address], [place], [address] Email: Physical Therapy Initial Evaluation PT-OP-A Visit Information Start: 06/03/23 13:31 Freq: Status: Active Protocol: Document 06/03/23 15:18 SAK (Rec: 06/03/23 17:09 [facility] [id number]) Out-Patient Physical Therapy Visit Information Visit Information Visit Type Initial Evaluation Visit Start Time 15:18 Visit Stop Time 16:15 Visit Number 57 Evaluation Information Evaluation Date 06/03/23 PT-OP-B Current Condition Start: 06/03/23 13:31 Freq: Status: Active Protocol: Document 06/03/23 15:18 SAK (Rec: 06/03/23 17:09 [facility] [id number]) Current Condition History of Current Condition Onset Date 3 months ago, 3 years Current Complaints right shoulder pain, neck pain History of Current Condition severe neck pain 3 years ago started no known injury, tender to the touch, reports Dowager's hump. 3 months ago gradual onset right shoulder pain, got severe. Is right handed. Mental health counselor, has sit to stand desk. Difficult to find comfortable position to sleep. Has firmer mattress. REports tingling and numbness in hands and feet about 6 months to year with prolonged sitting or middle of night. Sleeps mostly on stomach but is trying body pillow. Prior Treatments and Tests some Tylenol, Motrin minimal effect. Has used ice and takes warm baths end of night. Used Icy hot extemded period. PT-OP-C Subjective Start: 06/03/23 13:31 Freq: Status: Active Protocol: Document 06/03/23 15:18 SAK (Rec: 06/03/23 17:09 [facility] [id number]) Patient Questionnaires Neck Disability Index NDI Score 48 Quick Dash- Upper Extremity Quick Dash UE Score 23 PT-OP-H Neuro Start: 06/03/23 13:31 Freq: Status: Active Protocol: Document 06/03/23 15:18 SAK (Rec: 06/03/23 17:09 [facility] [id number]) Sensation Evaluation Gross Sensation Gross Sensation Left UE Impaired,Right UE Impaired,Left LE Impaired, Right LE Impaired Sensation Description Paresthesia Comments Summary Comments Reports N/T in feet and hands frequently PT-OP-J Posture/Palpation/Skin Start: 06/03/23 13:31 Freq: Status: Active Protocol: Document 06/03/23 15:18 SAK (Rec: 06/03/23 17:09 [facility] [id number]) Posture Evaluation Position Standing Head/C-Spine Posture Forward Head T-Spine Posture Increased Kyphosis L-Spine Posture Increased Lordosis Shoulder Posture (L) Rounded,(R) Rounded Scapula Posture (L) Protracted,(R) Protracted Arm Posture (L) Internally Rotated,(R) Internally Rotated Knee Posture (L) Genu Recurvatum,(R) Genu Recurvatum Palpation Assessment Location GH Palpation Findings Tenderness Palpation Details RC insertion, periscap neck Palpation Findings Soft Tissue Tightness,Muscle Guarding,Tenderness Palpation Details right c/s PT-OP-K Range of Motion Start: 06/03/23 13:31 Freq: Status: Active Protocol: Document 06/03/23 15:18 [facility] (Rec: 06/03/23 17:09 [facility] [id number]) Cervical Spine Range of Motion Cervical Spine Active Testing Position Sitting Flexion 45 Extension 75 Rotation Left 60 Rotation Right 65 Lateral Flexion Left 35 Lateral Flexion Right 45 ROM Limitations Pain Comments inc pain with flexion, rot right tight, left painful, sidebend left tight right painful Shoulder Goniometric Range of Motion Shoulder Right Shoulder ROM WFL No Testing Position Sitting Flexion 145 Extension 15 Abduction 140 External Rotation at 0 degrees Abduction 70 Internal Rotation Behind Back (text) L2 Left Shoulder ROM WFL Yes Internal Rotation Behind Back (text) T10 Shoulder ROM Limitations Shoulder ROM Limitations Pain PT-OP-L Special Tests Start: 06/03/23 13:31 Freq: Status: Active Protocol: Document 06/03/23 15:18 SAK (Rec: 06/03/23 17:09 [facility] [id number]) Special Tests Cervical Spine Special Tests Traction Test Results - Foraminal Compression Test Results - Shoulder Special Tests Elevation Impingement Test Results +R Drop Arm Rotator Cuff Test Results - R Belly Press Test Results + R Comments mild pain PT-OP-M Strength Start: 06/03/23 13:31 Freq: Status: Active Protocol: Document 06/03/23 15:18 [facility] (Rec: 06/03/23 17:09 [facility] [id number]) Cervical Spine Strength Cervical Spine Manual Muscle Testing Flexion (C1-2) 4- Good- Extension 4- Good- Rotation Left 4- Good- Rotation Right 4- Good- Lateral Flexion Left (C3) 4- Good- Lateral Flexion Right (C3) 4- Good- Comments pain with resistance Shoulder Strength Shoulder Manual Muscle Testing Right Flexion 4- Good- Extension 4- Good- Abduction (C5) 4- Good- Adduction 4- Good- External Rotation 4 Good Left Flexion 5 Normal Extension 5 Normal Abduction (C5) 4+ Good+ Adduction 4 Good External Rotation 4+ Good+ Elbow/Forearm Strength Elbow and Forearm Manual Muscle Testing Right Flexion (C6) 4+ Good+ Extension (C7) 4+ Good+ Left Flexion (C6) 5 Normal Extension (C7) 5 Normal PT-OP-Q Treatments Start: 06/03/23 13:31 Freq: Status: Active Protocol: Document 06/03/23 15:18 [facility] (Rec: 06/03/23 17:09 [facility] [id number]) Self-Care/Home Management Treatment Education Patient Education Home Exercise Program,Posture Other Education issued written HO for HEP and bed positioning (IPA) PT-OP-R Modalities Start: 06/03/23 13:31 Freq: Status: Active Protocol: Document 06/03/23 15:18 [facility] (Rec: 06/03/23 17:09 [facility] [id number]) Hot Pack/Cold Pack Treatment Hot Pack Location neck, shoulder Patient Position Hooklying Patient Tolerance Good Comments 90/90 position PT-OP-T Assessment and Plan Start: 06/03/23 13:31 Freq: Status: Active Protocol: Document 06/03/23 15:18 SAK (Rec: 06/03/23 17:09 [facility] [id number]) Physical Therapy Assessment Rehab Potential Rehabilitation Potential Good Evaluation Complexity Number of Personal Factors/Comorbidities 1-2 Number of Body Systems Impaired 3 Clinical Presentation at Evaluation Evolving Impairments Impairments Activity Tolerance,Functional Activities,Pain,Posture,Soft Tissue Mobility,Strength Goals Four Impairment poor sleep due to neck and shoulder pain Custodial Goal (LTG) Patient to improve sleep by at least 50% due to reduction in pain LTG Duration 08/02/23 Three Impairment Quickdash UE disability Index score 23% Short Term Goal (STG) Improve score to no greater than 15% as measure of improved right UE function STG Duration 07/04/23 Validation Analyst Goal (LTG) Improve score to no greater than 8% as measure of improved right UE function and quality of life LTG Duration 08/02/23 Two Impairment neck disability index score 48 % Short Term Goal (STG) decrease NDI score to no greater than 35% as measure of improved neck function STG Duration 07/04/23 Custodial Goal (LTG) decrease NDI to no greater than 15% as measure of improved neck function and quality of life LTG Duration 08/02/23 One Impairment postural dysfunction Short Term Goal (STG) Patient to be instructed in neutral postural alignment and HEP for postural correction. Patient to perform self- assessment of postural and movement habits with PT guidance STG Duration 07/04/23 Custodial Goal (LTG) Patient to demonstrate good understanding of neutral posture, be independent and compliant with HEP, and demonstrate improved posture statically and dynamically with function LTG Duration 08/02/23 Assessment Summary Assessment Patient presents to PT with function-limiting pain in her cervical spine for 3 years and right shoulder and scapular region for 3 months. No known cause of either pain , has had minimal relief with use of over the counter medications or ice. Patient presents with postural dysfunction of forward head and rounded shoulders with significant Dowager's hump T1-3, increased muscle tension right upper trap, cervical musculature, and periscapular musculature. and weakness posterior chain musculature. Patient has hypermobility throughout her body. Also contributory appears to be patient sleeping on her stomach so time was spent in education regarding healthy sleeping positions for her neck and shoulder. Initial postural correction exercises were issued and trial moist heat in 90/90 position was applied. Feel she will benefit from PT to improve her postural alignment and strength, and decrease her muscle tension and pain to allow her to return to all prior activities and sleep without being woken due to pain. POC was discussed and she was in agreement. Physical Therapy Plan Frequency and Duration Frequency of Treatment 2x/Week Duration of treatment (weeks) 8 Plan of Care Start Date 06/03/23 Plan of Care End Date 08/02/23 Therapeutic Interventions Therapeutic Interventions Home Exercise Program,Manual Therapy,Neuromuscular Re- education,Patient/Caregiver Education,Self-Care/Home Management,Soft Tissue Mobilization,Taping, Therapeutic Activities, Therapeutic Exercises Next Visit Focus/Plan Next Note Type Treatment Note Next Visit Plan Assess response to eval and treatment today, review bed positioning, postural correction exercises, moist heat or ice in 90/90 position. Continue gentle progression of postural correction exercises, consider STM to cervical paraspinals, UT, LS as well as right scap mob. Consider IFES.
--- NOTE | 2023-06-03 17:10 | PT.OPPOC ---
Physical, Occupational & Speech Therapy At [facility] Current Diagnoses Pain in right shoulder (06/03/23) Cervicalgia (06/03/23) Abnormal posture (06/03/23) Weakness (06/03/23) Visit Care Team Role Provider Type RENEE Smith Attending Provider Non-Staff Family Provider Primary Care Provider Referring Provider Specialty: Nursing Address: [facility] [address], [address], [place], [address] Email: Plan Of Care PT-OP-T Assessment and Plan Start: 06/03/23 13:31 Freq: Status: Active Protocol: Document 06/03/23 15:18 SAK (Rec: 06/03/23 17:09 [facility] [id number]) Physical Therapy Assessment Rehab Potential Rehabilitation Potential Good Evaluation Complexity Number of Personal Factors/Comorbidities 1-2 Number of Body Systems Impaired 3 Clinical Presentation at Evaluation Evolving Impairments Impairments Activity Tolerance,Functional Activities,Pain,Posture,Soft Tissue Mobility,Strength Goals Four Impairment poor sleep due to neck and shoulder pain Prison Goal (LTG) Patient to improve sleep by at least 50% due to reduction in pain LTG Duration 08/02/23 Three Impairment Quickdash UE disability Index score 23% Short Term Goal (STG) Improve score to no greater than 15% as measure of improved right UE function STG Duration 07/04/23 Prison Goal (LTG) Improve score to no greater than 8% as measure of improved right UE function and quality of life LTG Duration 08/02/23 Two Impairment neck disability index score 48 % Short Term Goal (STG) decrease NDI score to no greater than 35% as measure of improved neck function STG Duration 07/04/23 Con[employer]or [employer] Bak[employer] Worker Goal (LTG) decrease NDI to no greater than 15% as measure of improved neck function and quality of life LTG Duration 08/02/23 One Impairment postural dysfunction Short Term Goal (STG) Patient to be instructed in neutral postural alignment and HEP for postural correction. Patient to perform self- assessment of postural and movement habits with PT guidance STG Duration 07/04/23 Prison Goal (LTG) Patient to demonstrate good understanding of neutral posture, be independent and compliant with HEP, and demonstrate improved posture statically and dynamically with function LTG Duration 08/02/23 Assessment Summary Assessment Patient presents to PT with function-limiting pain in her cervical spine for 3 years and right shoulder and scapular region for 3 months. No known cause of either pain , has had minimal relief with use of over the counter medications or ice. Patient presents with postural dysfunction of forward head and rounded shoulders with significant Dowager's hump T1-3, increased muscle tension right upper trap, cervical musculature, and periscapular musculature. and weakness posterior chain musculature. Patient has hypermobility throughout her body. Also contributory appears to be patient sleeping on her stomach so time was spent in education regarding healthy sleeping positions for her neck and shoulder. Initial postural correction exercises were issued and trial moist heat in 90/90 position was applied. Feel she will benefit from PT to improve her postural alignment and strength, and decrease her muscle tension and pain to allow her to return to all prior activities and sleep without being woken due to pain. POC was discussed and she was in agreement. Physical Therapy Plan Frequency and Duration Frequency of Treatment 2x/Week Duration of treatment (weeks) 8 Plan of Care Start Date 06/03/23 Plan of Care End Date 08/02/23 Therapeutic Interventions Therapeutic Interventions Home Exercise Program,Manual Therapy,Neuromuscular Re- education,Patient/Caregiver Education,Self-Care/Home Management,Soft Tissue Mobilization,Taping, Therapeutic Activities, Therapeutic Exercises Next Visit Focus/Plan Next Note Type Treatment Note Next Visit Plan Assess response to eval and treatment today, review bed positioning, postural correction exercises, moist heat or ice in 90/90 position. Continue gentle progression of postural correction exercises, consider STM to cervical paraspinals, UT, LS as well as right scap mob. Consider IFES. Plan of Care Dates Plan of Care Start Date 06/03/23 Plan of Care End Date 08/02/23 Electronically Signed by: Ange Reed, PT 06/03/23 [id number] If you are in agreement with this Plan of Care, please return a signed and dated copy. I have reviewed this Plan of Care and certify that the skilled therapy services above are required to meet the patient?s needs. Physician Signature Date Printed Name and Credentials Clinical Instructor Signature Printed Name and Credentials
--- NOTE | 2023-06-08 17:33 | PT.OTN ---
Current Diagnoses Pain in right shoulder (06/08/23) Cervicalgia (06/08/23) Abnormal posture (06/08/23) Weakness (06/08/23) Physical Therapy Treatment Note PT-OP-A Visit Information Start: 06/03/23 13:31 Freq: Status: Active Protocol: Document 06/08/23 16:06 NBM (Rec: 06/08/23 17:32 NB [id number]) Out-Patient Physical Therapy Visit Information Visit Information Visit Type Treatment Note Visit Start Time 16:06 Visit Stop Time 17:01 Visit Number 55 Number of FREELANCE PROGRAMMER/APP DEVELOPER Visits 1 PT-OP-B Current Condition Start: 06/03/23 13:31 Freq: Status: Active Protocol: Document 06/03/23 15:18 SAK (Rec: 06/03/23 17:09 SAK [id number]) Current Condition History of Current Condition Onset Date 3 months ago, 3 years Current Complaints right shoulder pain, neck pain History of Current Condition severe neck pain 3 years ago started no known injury, tender to the touch, reports Dowager's hump. 3 months ago gradual onset right shoulder pain, got severe. Is right handed. Mental health counselor, has sit to stand desk. Difficult to find comfortable position to sleep. Has firmer mattress. REports tingling and numbness in hands and feet about 6 months to year with prolonged sitting or middle of night. Sleeps mostly on stomach but is trying body pillow. Prior Treatments and Tests some Tylenol, Motrin minimal effect. Has used ice and takes warm baths end of night. Used Icy hot extemded period. PT-OP-C Subjective Start: 06/03/23 13:31 Freq: Status: Active Protocol: Document 06/08/23 16:06 NBM (Rec: 06/08/23 17:32 NB [id number]) OP-PT Subjective Patient Comments Patient Comments Elizabeth reports she is very sore this week and has had tingling and numbness in both hands and legs all week. She also has TMJ and clenches her teeth. Work may have been more stressful this week and contributed to tension in body . She was able to do HEP which felt good like body was opening up and tried bed positioning with body pillow. Moist heat felt very good. PT-OP-H Neuro Start: 06/03/23 13:31 Freq: Status: Active Protocol: Document 06/03/23 15:18 [facility] (Rec: 06/03/23 17:09 [facility] [id number]) Sensation Evaluation Gross Sensation Gross Sensation Left UE Impaired,Right UE Impaired,Left LE Impaired, Right LE Impaired Sensation Description Paresthesia Comments Summary Comments Reports N/T in feet and hands frequently PT-OP-J Posture/Palpation/Skin Start: 06/03/23 13:31 Freq: Status: Active Protocol: Document 06/03/23 15:18 [facility] (Rec: 06/03/23 17:09 [facility] [id number]) Posture Evaluation Position Standing Head/C-Spine Posture Forward Head T-Spine Posture Increased Kyphosis L-Spine Posture Increased Lordosis Shoulder Posture (L) Rounded,(R) Rounded Scapula Posture (L) Protracted,(R) Protracted Arm Posture (L) Internally Rotated,(R) Internally Rotated Knee Posture (L) Genu Recurvatum,(R) Genu Recurvatum Palpation Assessment Location GH Palpation Findings Tenderness Palpation Details RC insertion, periscap neck Palpation Findings Soft Tissue Tightness,Muscle Guarding,Tenderness Palpation Details right c/s PT-OP-K Range of Motion Start: 06/03/23 13:31 Freq: Status: Active Protocol: Document 06/03/23 15:18 SAK (Rec: 06/03/23 17:09 [facility] [id number]) Cervical Spine Range of Motion Cervical Spine Active Testing Position Sitting Flexion 45 Extension 75 Rotation Left 60 Rotation Right 65 Lateral Flexion Left 35 Lateral Flexion Right 45 ROM Limitations Pain Comments inc pain with flexion, rot right tight, left painful, sidebend left tight right painful Shoulder Goniometric Range of Motion Shoulder Right Shoulder ROM WFL No Testing Position Sitting Flexion 145 Extension 15 Abduction 140 External Rotation at 0 degrees Abduction 70 Internal Rotation Behind Back (text) L2 Left Shoulder ROM WFL Yes Internal Rotation Behind Back (text) T10 Shoulder ROM Limitations Shoulder ROM Limitations Pain PT-OP-L Special Tests Start: 06/03/23 13:31 Freq: Status: Active Protocol: Document 06/03/23 15:18 SAK (Rec: 06/03/23 17:09 [facility] [id number]) Special Tests Cervical Spine Special Tests Traction Test Results - Foraminal Compression Test Results - Shoulder Special Tests Elevation Impingement Test Results +R Drop Arm Rotator Cuff Test Results - R Belly Press Test Results + R Comments mild pain PT-OP-M Strength Start: 06/03/23 13:31 Freq: Status: Active Protocol: Document 06/03/23 15:18 SAK (Rec: 06/03/23 17:09 SAK [id number]) Cervical Spine Strength Cervical Spine Manual Muscle Testing Flexion (C1-2) 4- Good- Extension 4- Good- Rotation Left 4- Good- Rotation Right 4- Good- Lateral Flexion Left (C3) 4- Good- Lateral Flexion Right (C3) 4- Good- Comments pain with resistance Shoulder Strength Shoulder Manual Muscle Testing Right Flexion 4- Good- Extension 4- Good- Abduction (C5) 4- Good- Adduction 4- Good- External Rotation 4 Good Left Flexion 5 Normal Extension 5 Normal Abduction (C5) 4+ Good+ Adduction 4 Good External Rotation 4+ Good+ Elbow/Forearm Strength Elbow and Forearm Manual Muscle Testing Right Flexion (C6) 4+ Good+ Extension (C7) 4+ Good+ Left Flexion (C6) 5 Normal Extension (C7) 5 Normal PT-OP-Q Treatments Start: 06/03/23 13:31 Freq: Status: Active Protocol: Document 06/08/23 16:06 NB (Rec: 06/08/23 17:32 [facility] [id number]) Therapeutic Exercises Supine Exercises scapular retraction Supine Exercise Name elbows bent to 90 deg - HEP Side bilateral Reps/Minutes 10 x 5SH Comments cues for UT overactivation, gentle contraction, TrA, and breath. diaphragmatic breathing Supine Exercise Name hand on chest, hand on belly - added to HEP Side bilateral Reps/Minutes x10 Comments to reduce mm guarding, pain management Core Supine Exercise Name 1. TrA 2. w/ PPT - added to HEP Equipment Used self-monitor TrA medial to ASIS Reps/Minutes x10 ea Comments cues for no breathholding, initial tactile cue for PPT chin tucks Supine Exercise Name HEP Reps/Minutes x5 Comments cues for retraction dc'd d/t c /o LBP L side, resumed end of session. Manual Therapy Treatment Soft Tissue Mobilization Shoulder Body Location R>L UT, LS Mobilization Type Myofascial Release,Rolling, Strumming,Sustained Pressure Intensity/Depth Superficial Body Position Hooklying Comments Pt initially tender to moderate pressure but able to sustain increased pressure by end of session (before moist heat) w/ decrease in palpable tension. Self-Care/Home Management Treatment Education Patient Education Home Exercise Program,Posture Other Education Edu: re: Transverse abdominis mm w/ visual aids for core stability and low back protection, importance for breath. Issued HO for diaphgragmatic breathing and TrA w/ PPT. PT-OP-R Modalities Start: 06/03/23 13:31 Freq: Status: Active Protocol: Document 06/08/23 16:06 NBM (Rec: 06/08/23 17:32 [facility] [id number]) Hot Pack/Cold Pack Treatment Hot Pack Location neck (velcroed), shoulder ( strap) thoracolumbar/lumbar Patient Position Hooklying Patient Tolerance Good Comments 15min 1 LE bolster feels really good PT-OP-T Assessment and Plan Start: 06/03/23 13:31 Freq: Status: Active Protocol: Document 06/08/23 16:06 NBM (Rec: 06/08/23 17:32 [facility] [id number]) Physical Therapy Assessment Goals Four Impairment poor sleep due to neck and shoulder pain Jail Goal (LTG) Patient to improve sleep by at least 50% due to reduction in pain LTG Duration 08/02/23 Three Impairment Quickdash UE disability Index score 23% Short Term Goal (STG) Improve score to no greater than 15% as measure of improved right UE function STG Duration 07/04/23 Jail Goal (LTG) Improve score to no greater than 8% as measure of improved right UE function and quality of life LTG Duration 08/02/23 Two Impairment neck disability index score 48 % Short Term Goal (STG) decrease NDI score to no greater than 35% as measure of improved neck function STG Duration 07/04/23 [employer] Registrar Goal (LTG) decrease NDI to no greater than 15% as measure of improved neck function and quality of life LTG Duration 08/02/23 One Impairment postural dysfunction Short Term Goal (STG) Patient to be instructed in neutral postural alignment and HEP for postural correction. Patient to perform self- assessment of postural and movement habits with PT guidance STG Duration 07/04/23 Jail Goal (LTG) Patient to demonstrate good understanding of neutral posture, be independent and compliant with HEP, and demonstrate improved posture statically and dynamically with function LTG Duration 08/02/23 Assessment Summary Assessment Treatment focuson soft tissue mobilization, HEP review, core and education. Abdominal soreness reported w/ supine scapular retractions resolves w/ cues for TrA, PPT, breath and gentle contraction. Edu: re: TrA and importance of not breathholding with ex's. Added to HEP: diaphgragmatic breathing and TrA w/ PPT - HO given. Chin tucks start of session were discontinued due to pt's complaint of LBP w/ L side spasm which resolves w/ STM and cues for TrA and PPT; chin tucks resumed end of session and pt able to complete without further incident. Tenderness R>L to UT and LS mm with superficial pressure improves after soft tissue mobilization, diaphgragmatic breathing, and cues for chin tucks wtih retraction instead of nod - positive feedback response. Moist heat to R shoulder, neck , and thoracolumbar and lumbar regions end of session. Pt reports no tingling or numbness symptoms end of session. Physical Therapy Plan Frequency and Duration Frequency of Treatment 2x/Week Duration of treatment (weeks) 8 Plan of Care Start Date 06/03/23 Plan of Care End Date 08/02/23 Therapeutic Interventions Therapeutic Interventions Home Exercise Program,Manual Therapy,Neuromuscular Re- education,Patient/Caregiver Education,Self-Care/Home Management,Soft Tissue Mobilization,Taping, Therapeutic Activities, Therapeutic Exercises Next Visit Focus/Plan Next Note Type Treatment Note Next Visit Plan Review bed positioning, postural correction exercises, moist heat or ice in 90/90 position. Continue gentle progression of postural correction exercises, consider STM to cervical paraspinals, UT, LS as well as right scap mob. Consider IFES.
--- NOTE | 2023-06-15 17:44 | PT.OTN ---
Current Diagnoses Pain in right shoulder (06/15/23) Cervicalgia (06/15/23) Abnormal posture (06/15/23) Weakness (06/15/23) Physical Therapy Treatment Note PT-OP-A Visit Information Start: 06/03/23 13:31 Freq: Status: Active Protocol: Document 06/15/23 16:55 DCW (Rec: 06/15/23 17:44 DCW [id number]) Out-Patient Physical Therapy Visit Information Visit Information Visit Type Treatment Note Visit Start Time 16:55 Visit Stop Time 17:45 Visit Number 3 Number of FIRE CONTROLMAN Visits 0 Evaluation Information Evaluation Date 06/03/23 PT-OP-B Current Condition Start: 06/03/23 13:31 Freq: Status: Active Protocol: Document 06/03/23 15:18 SAK (Rec: 06/03/23 17:09 SAK [id number]) Current Condition History of Current Condition Onset Date 3 months ago, 3 years Current Complaints right shoulder pain, neck pain History of Current Condition severe neck pain 3 years ago started no known injury, tender to the touch, reports Dowager's hump. 3 months ago gradual onset right shoulder pain, got severe. Is right handed. Mental health counselor, has sit to stand desk. Difficult to find comfortable position to sleep. Has firmer mattress. REports tingling and numbness in hands and feet about 6 months to year with prolonged sitting or middle of night. Sleeps mostly on stomach but is trying body pillow. Prior Treatments and Tests some Tylenol, Motrin minimal effect. Has used ice and takes warm baths end of night. Used Icy hot extemded period. PT-OP-C Subjective Start: 06/03/23 13:31 Freq: Status: Active Protocol: Document 06/15/23 16:55 DCW (Rec: 06/15/23 17:44 DCW [id number]) OP-PT Subjective Patient Comments Patient Comments It's been kind of sore, and then it goes into my back. PT-OP-H Neuro Start: 06/03/23 13:31 Freq: Status: Active Protocol: Document 06/03/23 15:18 SAK (Rec: 06/03/23 17:09 SAK [id number]) Sensation Evaluation Gross Sensation Gross Sensation Left UE Impaired,Right UE Impaired,Left LE Impaired, Right LE Impaired Sensation Description Paresthesia Comments Summary Comments Reports N/T in feet and hands frequently PT-OP-J Posture/Palpation/Skin Start: 06/03/23 13:31 Freq: Status: Active Protocol: Document 06/03/23 15:18 SAK (Rec: 06/03/23 17:09 [facility] [id number]) Posture Evaluation Position Standing Head/C-Spine Posture Forward Head T-Spine Posture Increased Kyphosis L-Spine Posture Increased Lordosis Shoulder Posture (L) Rounded,(R) Rounded Scapula Posture (L) Protracted,(R) Protracted Arm Posture (L) Internally Rotated,(R) Internally Rotated Knee Posture (L) Genu Recurvatum,(R) Genu Recurvatum Palpation Assessment Location GH Palpation Findings Tenderness Palpation Details RC insertion, periscap neck Palpation Findings Soft Tissue Tightness,Muscle Guarding,Tenderness Palpation Details right c/s PT-OP-K Range of Motion Start: 06/03/23 13:31 Freq: Status: Active Protocol: Document 06/03/23 15:18 [facility] (Rec: 06/03/23 17:09 [facility] [id number]) Cervical Spine Range of Motion Cervical Spine Active Testing Position Sitting Flexion 45 Extension 75 Rotation Left 60 Rotation Right 65 Lateral Flexion Left 35 Lateral Flexion Right 45 ROM Limitations Pain Comments inc pain with flexion, rot right tight, left painful, sidebend left tight right painful Shoulder Goniometric Range of Motion Shoulder Right Shoulder ROM WFL No Testing Position Sitting Flexion 145 Extension 15 Abduction 140 External Rotation at 0 degrees Abduction 70 Internal Rotation Behind Back (text) L2 Left Shoulder ROM WFL Yes Internal Rotation Behind Back (text) T10 Shoulder ROM Limitations Shoulder ROM Limitations Pain PT-OP-L Special Tests Start: 06/03/23 13:31 Freq: Status: Active Protocol: Document 06/03/23 15:18 SAK (Rec: 06/03/23 17:09 [facility] [id number]) Special Tests Cervical Spine Special Tests Traction Test Results - Foraminal Compression Test Results - Shoulder Special Tests Elevation Impingement Test Results +R Drop Arm Rotator Cuff Test Results - R Belly Press Test Results + R Comments mild pain PT-OP-M Strength Start: 06/03/23 13:31 Freq: Status: Active Protocol: Document 06/03/23 15:18 SAK (Rec: 06/03/23 17:09 [facility] [id number]) Cervical Spine Strength Cervical Spine Manual Muscle Testing Flexion (C1-2) 4- Good- Extension 4- Good- Rotation Left 4- Good- Rotation Right 4- Good- Lateral Flexion Left (C3) 4- Good- Lateral Flexion Right (C3) 4- Good- Comments pain with resistance Shoulder Strength Shoulder Manual Muscle Testing Right Flexion 4- Good- Extension 4- Good- Abduction (C5) 4- Good- Adduction 4- Good- External Rotation 4 Good Left Flexion 5 Normal Extension 5 Normal Abduction (C5) 4+ Good+ Adduction 4 Good External Rotation 4+ Good+ Elbow/Forearm Strength Elbow and Forearm Manual Muscle Testing Right Flexion (C6) 4+ Good+ Extension (C7) 4+ Good+ Left Flexion (C6) 5 Normal Extension (C7) 5 Normal PT-OP-Q Treatments Start: 06/03/23 13:31 Freq: Status: Active Protocol: Document 06/15/23 16:55 DCW (Rec: 06/15/23 17:44 DCW [id number]) Therapeutic Exercises Supine Exercises PNF Supine Exercise Name PNF D1/D2 UE flexion Side right Resistance 2# ER/IR Supine Exercise Name ER/IR in 90/90 Side right Resistance 2# Horizontal Adduction Supine Exercise Name Horizontal Adduction Side bilateral Resistance 2# Serratus Punch Supine Exercise Name Serratus Punch Side bilateral Resistance 0# Flexion Supine Exercise Name Shoulder Flexion Side bilateral Equipment Used PVC Sidelying Exercises Open Book Sidelying Exercise Name Open Book Side bilateral Standing Exercises Pec Stretch Standing Exercise Name Corner pec stretch Side bilateral Manual Therapy Treatment Soft Tissue Mobilization Shoulder Body Location R>L UT, LS, Periscapulars Mobilization Type Rolling,Strumming,Sustained Pressure Intensity/Depth Moderate Body Position Hooklying PT-OP-R Modalities Start: 06/03/23 13:31 Freq: Status: Active Protocol: Document 06/15/23 16:55 DCW (Rec: 06/15/23 17:44 DCW [id number]) Hot Pack/Cold Pack Treatment Hot Pack Location neck, shoulder Patient Position Hooklying Patient Tolerance Good Comments 10 min 1 LAURENT higuera PT-OP-T Assessment and Plan Start: 06/03/23 13:31 Freq: Status: Active Protocol: Document 06/15/23 16:55 DCW (Rec: 06/15/23 17:44 DCW [id number]) Physical Therapy Assessment Impairments Impairments Activity Tolerance,Functional Activities,Pain,Posture,Soft Tissue Mobility,Strength Goals Four Impairment poor sleep due to neck and shoulder pain Skilled Nursing Goal (LTG) Patient to improve sleep by at least 50% due to reduction in pain LTG Duration 08/02/23 Three Impairment Quickdash UE disability Index score 23% Short Term Goal (STG) Improve score to no greater than 15% as measure of improved right UE function STG Duration 07/04/23 Skilled Nursing Goal (LTG) Improve score to no greater than 8% as measure of improved right UE function and quality of life LTG Duration 08/02/23 Two Impairment neck disability index score 48 % Short Term Goal (STG) decrease NDI score to no greater than 35% as measure of improved neck function STG Duration 07/04/23 Skilled Nursing Goal (LTG) decrease NDI to no greater than 15% as measure of improved neck function and quality of life LTG Duration 08/02/23 One Impairment postural dysfunction Short Term Goal (STG) Patient to be instructed in neutral postural alignment and HEP for postural correction. Patient to perform self- assessment of postural and movement habits with PT guidance STG Duration 07/04/23 Skilled Nursing Goal (LTG) Patient to demonstrate good understanding of neutral posture, be independent and compliant with HEP, and demonstrate improved posture statically and dynamically with function LTG Duration 08/02/23 Assessment Summary Assessment Good response to strengthening /stabilization exercises today , felt good with STM, addition of open book, pec stretch, and serratus punch to HEP. Physical Therapy Plan Frequency and Duration Frequency of Treatment 2x/Week Duration of treatment (weeks) 8 Plan of Care Start Date 06/03/23 Plan of Care End Date 08/02/23 Therapeutic Interventions Therapeutic Interventions Home Exercise Program,Manual Therapy,Neuromuscular Re- education,Patient/Caregiver Education,Self-Care/Home Management,Soft Tissue Mobilization,Taping, Therapeutic Activities, Therapeutic Exercises Next Visit Focus/Plan Next Note Type Treatment Note Next Visit Plan Review bed positioning, postural correction exercises, moist heat or ice in 90/90 position. Continue gentle progression of postural correction exercises, consider STM to cervical paraspinals, UT, LS as well as right scap mob. Consider IFES.
--- NOTE | 2023-06-26 16:47 | PT.OTN ---
Current Diagnoses Pain in right shoulder (06/26/23) Cervicalgia (06/26/23) Abnormal posture (06/26/23) Weakness (06/26/23) Physical Therapy Treatment Note PT-OP-A Visit Information Start: 06/03/23 13:31 Freq: Status: Active Protocol: Document 06/26/23 16:05 DCW (Rec: 06/26/23 16:47 DCW [id number]) Out-Patient Physical Therapy Visit Information Visit Information Visit Type Treatment Note Visit Start Time 16:05 Visit Stop Time 16:45 Visit Number 4 Number of INCLUSION SPECIALIST Visits 0 Evaluation Information Evaluation Date 06/03/23 PT-OP-B Current Condition Start: 06/03/23 13:31 Freq: Status: Active Protocol: Document 06/03/23 15:18 SAK (Rec: 06/03/23 17:09 SAK [id number]) Current Condition History of Current Condition Onset Date 3 months ago, 3 years Current Complaints right shoulder pain, neck pain History of Current Condition severe neck pain 3 years ago started no known injury, tender to the touch, reports Dowager's hump. 3 months ago gradual onset right shoulder pain, got severe. Is right handed. Mental health counselor, has sit to stand desk. Difficult to find comfortable position to sleep. Has firmer mattress. REports tingling and numbness in hands and feet about 6 months to year with prolonged sitting or middle of night. Sleeps mostly on stomach but is trying body pillow. Prior Treatments and Tests some Tylenol, Motrin minimal effect. Has used ice and takes warm baths end of night. Used Icy hot extemded period. PT-OP-C Subjective Start: 06/03/23 13:31 Freq: Status: Active Protocol: Document 06/26/23 16:05 DCW (Rec: 06/26/23 16:47 DCW [id number]) OP-PT Subjective Patient Comments Patient Comments Arm and back are a little sore today. PT-OP-H Neuro Start: 06/03/23 13:31 Freq: Status: Active Protocol: Document 06/03/23 15:18 SAK (Rec: 06/03/23 17:09 SAK [id number]) Sensation Evaluation Gross Sensation Gross Sensation Left UE Impaired,Right UE Impaired,Left LE Impaired, Right LE Impaired Sensation Description Paresthesia Comments Summary Comments Reports N/T in feet and hands frequently PT-OP-J Posture/Palpation/Skin Start: 06/03/23 13:31 Freq: Status: Active Protocol: Document 06/03/23 15:18 SAK (Rec: 06/03/23 17:[address] [facility] [id number]) Posture Evaluation Position Standing Head/C-Spine Posture Forward Head T-Spine Posture Increased Kyphosis L-Spine Posture Increased Lordosis Shoulder Posture (L) Rounded,(R) Rounded Scapula Posture (L) Protracted,(R) Protracted Arm Posture (L) Internally Rotated,(R) Internally Rotated Knee Posture (L) Genu Recurvatum,(R) Genu Recurvatum Palpation Assessment Location GH Palpation Findings Tenderness Palpation Details RC insertion, periscap neck Palpation Findings Soft Tissue Tightness,Muscle Guarding,Tenderness Palpation Details right c/s PT-OP-K Range of Motion Start: 06/03/23 13:31 Freq: Status: Active Protocol: Document 06/03/23 15:[address] [facility] (Rec: 06/03/23 17:[address] [facility] [id number]) Cervical Spine Range of Motion Cervical Spine Active Testing Position Sitting Flexion 45 Extension 75 Rotation Left 60 Rotation Right 65 Lateral Flexion Left 35 Lateral Flexion Right 45 ROM Limitations Pain Comments inc pain with flexion, rot right tight, left painful, sidebend left tight right painful Shoulder Goniometric Range of Motion Shoulder Right Shoulder ROM WFL No Testing Position Sitting Flexion 145 Extension 15 Abduction 140 External Rotation at 0 degrees Abduction 70 Internal Rotation Behind Back (text) L2 Left Shoulder ROM WFL Yes Internal Rotation Behind Back (text) T10 Shoulder ROM Limitations Shoulder ROM Limitations Pain PT-OP-L Special Tests Start: 06/03/23 13:31 Freq: Status: Active Protocol: Document 06/03/23 15:18 SAK (Rec: 06/03/23 17:[address] [facility] [id number]) Special Tests Cervical Spine Special Tests Traction Test Results - Foraminal Compression Test Results - Shoulder Special Tests Elevation Impingement Test Results +R Drop Arm Rotator Cuff Test Results - R Belly Press Test Results + R Comments mild pain PT-OP-M Strength Start: 06/03/23 13:31 Freq: Status: Active Protocol: Document 06/03/23 15:18 SAK (Rec: 06/03/23 17:[address] [facility] [id number]) Cervical Spine Strength Cervical Spine Manual Muscle Testing Flexion (C1-2) 4- Good- Extension 4- Good- Rotation Left 4- Good- Rotation Right 4- Good- Lateral Flexion Left (C3) 4- Good- Lateral Flexion Right (C3) 4- Good- Comments pain with resistance Shoulder Strength Shoulder Manual Muscle Testing Right Flexion 4- Good- Extension 4- Good- Abduction (C5) 4- Good- Adduction 4- Good- External Rotation 4 Good Left Flexion 5 Normal Extension 5 Normal Abduction (C5) 4+ Good+ Adduction 4 Good External Rotation 4+ Good+ Elbow/Forearm Strength Elbow and Forearm Manual Muscle Testing Right Flexion (C6) 4+ Good+ Extension (C7) 4+ Good+ Left Flexion (C6) 5 Normal Extension (C7) 5 Normal PT-OP-Q Treatments Start: 06/03/23 13:31 Freq: Status: Active Protocol: Document 06/26/23 16:05 DCW (Rec: 06/26/23 16:47 DCW [id number]) Therapeutic Exercises Supine Exercises Serratus Punch Supine Exercise Name Serratus Punch Side bilateral Resistance 5# PVC Flexion Supine Exercise Name Shoulder Flexion Side bilateral Resistance 5# Equipment Used PVC Manual Therapy Treatment Soft Tissue Mobilization Shoulder Body Location R>L UT, LS, Periscapulars Mobilization Type Rolling,Strumming,Sustained Pressure Intensity/Depth Moderate Body Position Hooklying Joint Mobilizations A/C Joint A/C, S/C jt mobs Direction Inf Grade III PT-OP-R Modalities Start: 06/03/23 13:31 Freq: Status: Active Protocol: Document 06/15/23 16:55 DCW (Rec: 06/15/23 17:44 DCW [id number]) Hot Pack/Cold Pack Treatment Hot Pack Location neck, shoulder Patient Position Hooklying Patient Tolerance Good Comments 10 min 1 LAURENT higuera PT-OP-T Assessment and Plan Start: 06/03/23 13:31 Freq: Status: Active Protocol: Document 06/26/23 16:05 DCW (Rec: 06/26/23 16:47 DCW [id number]) Physical Therapy Assessment Impairments Impairments Activity Tolerance,Functional Activities,Pain,Posture,Soft Tissue Mobility,Strength Goals Four Impairment poor sleep due to neck and shoulder pain Cuprous Chloride Operator Goal (LTG) Patient to improve sleep by at least 50% due to reduction in pain LTG Duration 08/02/23 Three Impairment Quickdash UE disability Index score 23% Short Term Goal (STG) Improve score to no greater than 15% as measure of improved right UE function STG Duration 07/04/23 Alf Goal (LTG) Improve score to no greater than 8% as measure of improved right UE function and quality of life LTG Duration 08/02/23 Two Impairment neck disability index score 48 % Short Term Goal (STG) decrease NDI score to no greater than 35% as measure of improved neck function STG Duration 07/04/23 Cuprous Chloride Operator Goal (LTG) decrease NDI to no greater than 15% as measure of improved neck function and quality of life LTG Duration 08/02/23 One Impairment postural dysfunction Short Term Goal (STG) Patient to be instructed in neutral postural alignment and HEP for postural correction. Patient to perform self- assessment of postural and movement habits with PT guidance STG Duration 07/04/23 Cuprous Chloride Operator Goal (LTG) Patient to demonstrate good understanding of neutral posture, be independent and compliant with HEP, and demonstrate improved posture statically and dynamically with function LTG Duration 08/02/23 Assessment Summary Assessment Increased focus on STM today, continues to exhibit increased soft tissue tone. Good response overall, plan to increase strengthening and stability exercises next visit . Physical Therapy Plan Frequency and Duration Frequency of Treatment 2x/Week Duration of treatment (weeks) 8 Plan of Care Start Date 06/03/23 Plan of Care End Date 08/02/23 Therapeutic Interventions Therapeutic Interventions Home Exercise Program,Manual Therapy,Neuromuscular Re- education,Patient/Caregiver Education,Self-Care/Home Management,Soft Tissue Mobilization,Taping, Therapeutic Activities, Therapeutic Exercises Next Visit Focus/Plan Next Note Type Treatment Note Next Visit Plan Review bed positioning, postural correction exercises, moist heat or ice in 90/90 position. Continue gentle progression of postural correction exercises, consider STM to cervical paraspinals, UT, LS as well as right scap mob. Consider IFES.
--- NOTE | 2023-10-12 17:50 | PT.OPDS ---
Current Diagnoses Pain in right shoulder (06/26/23) Cervicalgia (06/26/23) Abnormal posture (06/26/23) Weakness (06/26/23) Visit Care Team Role Provider Type RENEE Smith Attending Provider Non-Staff Family Provider Primary Care Provider Referring Provider Specialty: Nursing Address: [address], [address], [place], [address] Email: Visit Number Visit Number 4 Discharge Summary PT-OP-B Current Condition Start: 06/03/23 13:31 Freq: Status: Active Protocol: Document 06/03/23 15:18 SAK (Rec: 06/03/23 17:09 SAK [id number]) Current Condition History of Current Condition Onset Date 3 months ago, 3 years Current Complaints right shoulder pain, neck pain History of Current Condition severe neck pain 3 years ago started no known injury, tender to the touch, reports Dowager's hump. 3 months ago gradual onset right shoulder pain, got severe. Is right handed. Mental health counselor, has sit to stand desk. Difficult to find comfortable position to sleep. Has firmer mattress. REports tingling and numbness in hands and feet about 6 months to year with prolonged sitting or middle of night. Sleeps mostly on stomach but is trying body pillow. Prior Treatments and Tests some Tylenol, Motrin minimal effect. Has used ice and takes warm baths end of night. Used Icy hot extemded period. PT-OP-C Subjective Start: 06/03/23 13:31 Freq: Status: Active Protocol: Document 06/26/23 16:05 DCW (Rec: 06/26/23 16:47 DCW [id number]) OP-PT Subjective Patient Comments Patient Comments Arm and back are a little sore today. PT-OP-H Neuro Start: 06/03/23 13:31 Freq: Status: Active Protocol: Document 06/03/23 15:18 SAK (Rec: 06/03/23 17:09 SAK [id number]) Sensation Evaluation Gross Sensation Gross Sensation Left UE Impaired,Right UE Impaired,Left LE Impaired, Right LE Impaired Sensation Description Paresthesia Comments Summary Comments Reports N/T in feet and hands frequently PT-OP-J Posture/Palpation/Skin Start: 06/03/23 13:31 Freq: Status: Active Protocol: Document 06/03/23 15:18 SAK (Rec: 06/03/23 17:09 [facility] [id number]) Posture Evaluation Position Standing Head/C-Spine Posture Forward Head T-Spine Posture Increased Kyphosis L-Spine Posture Increased Lordosis Shoulder Posture (L) Rounded,(R) Rounded Scapula Posture (L) Protracted,(R) Protracted Arm Posture (L) Internally Rotated,(R) Internally Rotated Knee Posture (L) Genu Recurvatum,(R) Genu Recurvatum Palpation Assessment Location GH Palpation Findings Tenderness Palpation Details RC insertion, periscap neck Palpation Findings Soft Tissue Tightness,Muscle Guarding,Tenderness Palpation Details right c/s PT-OP-K Range of Motion Start: 06/03/23 13:31 Freq: Status: Active Protocol: Document 06/03/23 15:18 SAK (Rec: 06/03/23 17:09 [facility] [id number]) Cervical Spine Range of Motion Cervical Spine Active Testing Position Sitting Flexion 45 Extension 75 Rotation Left 60 Rotation Right 65 Lateral Flexion Left 35 Lateral Flexion Right 45 ROM Limitations Pain Comments inc pain with flexion, rot right tight, left painful, sidebend left tight right painful Shoulder Goniometric Range of Motion Shoulder Right Shoulder ROM WFL No Testing Position Sitting Flexion 145 Extension 15 Abduction 140 External Rotation at 0 degrees Abduction 70 Internal Rotation Behind Back (text) L2 Left Shoulder ROM WFL Yes Internal Rotation Behind Back (text) T10 Shoulder ROM Limitations Shoulder ROM Limitations Pain PT-OP-L Special Tests Start: 06/03/23 13:31 Freq: Status: Active Protocol: Document 06/03/23 15:18 [facility] (Rec: 06/03/23 17:09 [facility] [id number]) Special Tests Cervical Spine Special Tests Traction Test Results - Foraminal Compression Test Results - Shoulder Special Tests Elevation Impingement Test Results +R Drop Arm Rotator Cuff Test Results - R Belly Press Test Results + R Comments mild pain PT-OP-M Strength Start: 06/03/23 13:31 Freq: Status: Active Protocol: Document 06/03/23 15:18 SAK (Rec: 06/03/23 17:09 [facility] [id number]) Cervical Spine Strength Cervical Spine Manual Muscle Testing Flexion (C1-2) 4- Good- Extension 4- Good- Rotation Left 4- Good- Rotation Right 4- Good- Lateral Flexion Left (C3) 4- Good- Lateral Flexion Right (C3) 4- Good- Comments pain with resistance Shoulder Strength Shoulder Manual Muscle Testing Right Flexion 4- Good- Extension 4- Good- Abduction (C5) 4- Good- Adduction 4- Good- External Rotation 4 Good Left Flexion 5 Normal Extension 5 Normal Abduction (C5) 4+ Good+ Adduction 4 Good External Rotation 4+ Good+ Elbow/Forearm Strength Elbow and Forearm Manual Muscle Testing Right Flexion (C6) 4+ Good+ Extension (C7) 4+ Good+ Left Flexion (C6) 5 Normal Extension (C7) 5 Normal PT-OP-T Assessment and Plan Start: 06/03/23 13:31 Freq: Status: Active Protocol: Document 10/12/23 17:49 DCW (Rec: 10/12/23 17:50 DCW [id number]) Physical Therapy Assessment Assessment Summary Assessment Pt canceled last three appointments, did not schedule any follow-up appointments, has now not been seen in more than three months. Pt will be discharged from skilled therapy at this time. Physical Therapy Plan Discharge Physical Therapy Discharge Reasons No Longer Attending PT
== END 2023-10-16 12:27 | disposition home or self-care (01) ==
LOC: PHYS 16:00
PROVIDERS: Family Provider Nurse Practitioner; PCP Nurse Practitioner; Referring Provider Nurse Practitioner; Visit Provider Nurse Practitioner
DX: M25.511 Pain in right shoulder (principal); M54.2 Cervicalgia; R29.3 Abnormal posture; R53.1 Weakness
CPT/HCPCS: 97010; 97110; 97140; 97162; 97535

== ENCOUNTER 2023-08-10 08:03 | Day surgery (SDC) | payer OTHER, SELFPAY ==
--- NOTE | 2023-08-10 | PATH_ITS ---
[facility] Accession Number: [id number] No. of containers..01 Tissue . 01 Material submitted: . colon - ASCENDING POLYP . 01 Diagnosis: ASCENDING COLON POLYP: Sessile serrated adenoma. MRV 08/17/2023 1209 Local . 01 Electronically signed: . Wilner Hendricks MD, PhD, Pathologist NPI- [id number] . 01 Gross description: . ASCENDING POLYP: Received in formalin are multiple fragment(s) of cruz, soft tissue measuring 0.1 x 0.1 x 0.1 cm to 0.5 x 0.5 x 0.4 cm submitted entirely in 1 cassette(s) /MERLE 08/11/2023 2230 Local . 01 Pathologist provided ICD-10: D12.2 . 01 CPT . 689639 Specimen Comment: A courtesy copy of this report has been sent to [phone] Performed at: 01 [facility] [address] [place] [address], [place], [place] [id number] MD Dariusz Aparicio MD Phone: [phone]
--- NOTE | 2023-08-10 08:23 | PM.HP.1 ---
History of Present Illness History of Present Illness Date Patient Seen: 08/10/23 Time Patient Seen: 08:23 Chief complaint: Colonoscopy Narrative: 33-year-old female with a family history of colon cancer in her brother here for colonoscopy. [facility] Medical History Normal colonoscopy Chronic pain No significant medical problems Surgical History [place] teeth removed H/O adenoidectomy Hx of tonsillectomy Family History Grandmother Cancer Social History Smoking Status: Never smoker Meds Home Medications and Allergies Home Medications Medication Instructions Recorded Confirmed Type synfbhtchq-cuovhyjxuathr-rkdngcjn 1 cap PO Q6H PRN pain #10 caps 06/28/19 Rx 50 mg-300 mg-40 mg capsule (Fioricet) acetaminophen 325 mg capsule 325 mg PO ONCE PRN 07/14/19 07/14/19 History (Tylenol) Allergies Allergy/AdvReac Type Severity Reaction Status Date / Time No Known Drug Allergies Allergy Verified 08/10/23 08:22 Review of Systems Review of Systems ROS: Yes All systems reviewed with the patient and are negative except as otherwise documented Exam Const General: cooperative HENMT Head: normal to inspection Eyes General: appearance normal, both eyes and all related structures Neck Neck: normal visual inspection Chest Chest: normal inspection of the chest Resp Effort & Inspection: normal respiratory effort Cardio Rate: regular rate GI Inspection: normal to inspection Skin General: no rashes or lesions noted Neuro General: patient alert and patient awake Extrem General: normal to inspection and no pedal edema Psych Appearance: grossly normal Assessment & Plan Assessment & Plan narrative: 33-year-old female with a family history of colon cancer. Colonoscopy is pursued today.
[2023-08-10 08:38] VITALS: BP 122/84; PULSE 83; RESP 16; TEMP 36.7; O2SAT 100
[2023-08-10] MEDS: LACTATED RINGERS 1,000 ML 100 ML IV (08:41)
--- NOTE | 2023-08-10 08:53 | PM.PREOP ---
Pre-operative Note Interval Note History & Physical reviewed/Exam performed by Physician: Yes Changes to H&P: No ASA Class (for procedural sedation): II
--- NOTE | 2023-08-10 09:19 | PM.OP.COLON ---
Operative Date/Time/Diagnoses Date of procedure: 08/10/23 Time of procedure: 09:19 Pre-op diagnosis: Family history of colon cancer Post-op diagnosis: same Procedure & Clinicians Study performed: Colonoscopy with hot snare polypectomy Same procedure as scheduled: Yes Indications: Family history of colon cancer Surgeon: Sergo Orellana Procedure Notes SCOAP/Timeout: Done Procedure in detail: After the risks and benefits were explained, written and verbal informed consent was obtained. The patient was brought into the procedure room and placed into the left lateral decubitus position. Please see anesthesia notes for sedation details.. Digital rectal examination was accomplished. The scope was introduced into the patient and advanced under direct visualization to the cecum as identified by the appendiceal orifice and ileocecal valve. The scope was slowly withdrawn to carefully examine the mucosa for any defects or lesions. Comprehensive imaging was accomplished throughout the rectum including the dentate line. The colon was decompressed, the scope was then removed from the patient who tolerated the procedure well. Pediatric colonoscope Bowel prep adequate Scope withdrawal time: 13 minutes Sedation minutes: 20 Complications: none Impression: There was a 7-8 mm sessile polyp in the ascending colon removed with hot snare. No additional significant mucosal pathology was appreciated throughout. The exam was otherwise considered normal. Endoscopic diagnosis Ascending colon polyp Post-procedure Plan for aftercare: 1. Await histology 2. Repeat colonoscopy will be contingent on pathology results. Considering family history, at the latest 5 years. Disposition: PACU
[2023-08-10 09:22] VITALS: BP 113/67; PULSE 79; RESP 22; TEMP 36.7; O2SAT 100
[2023-08-10 09:27] VITALS: BP 119/73; PULSE 69; RESP 12; O2SAT 100
[2023-08-10 09:33] VITALS: BP 115/77; PULSE 73; RESP 18; O2SAT 99
[2023-08-10 09:37] VITALS: BP 122/79; PULSE 64; RESP 12; O2SAT 100
--- NOTE | 2023-08-10 09:56 | SUR.PHASEII ---
Pt reports slight nausea that she has had since the prep. Declines anti-emetic and is tolerating shasha iesha.
== END 2023-08-10 09:55 | disposition home or self-care (01) ==
PROVIDERS: Family Provider Nurse Practitioner; PCP Nurse Practitioner; Referring Provider Internal Medicine Gastroenterology; Visit Provider Internal Medicine Gastroenterology
PROC: 0DJD8ZZ Inspection of Lower Intestinal Tract, Via Natural or Artificial Opening Endoscopic (ICD-10-PCS; CPT 45378; principal; 2023-08-10 09:00)
DX: Z12.11 Encounter for screening for malignant neoplasm of colon (principal); Z80.0 Family history of malignant neoplasm of digestive organs; D12.2 Benign neoplasm of ascending colon
CPT/HCPCS: 45385; J2704

== ENCOUNTER → 2023-10-02 13:55 | Outpatient (CLI) | payer OTHER, SELFPAY ==
--- NOTE | 2023-10-02 | DI.NM.S_ITS ---
PROCEDURE: [facility] WITH [facility] PHARMACEUTICAL: 5.4 mCi Tc-99m mebrofenin IV; 2 mcg CCK IV. INDICATIONS: Nausea TECHNIQUE: Following intravenous administration of Tc-99m mebrofenin, sequential anterior abdominal images were obtained. To evaluate the contractile response of the gallbladder in response to Cholecystokinin (CCK), sincalide (0.02 ?g/kg) was administered by slow intravenous infusion approximately 60 minutes after the administration of the radiopharmaceutical. Sequential imaging was continued for 30 minutes after the start of CCK infusion. Gallbladder ejection fraction was calculated. COMPARISON: [place], [place], [facility] WITH CCK, 08/01/2019, 9:03. FINDINGS: Biliary scan: There is normal tracer uptake and excretion by the liver. There is normal visualization of the intrahepatic ducts, common bile duct, and gallbladder. There is normal tracer transit into the duodenum. CCK stimulation: There is normal contractile response of the gallbladder to CCK infusion. The calculated gallbladder ejection fraction is 100% ; normal values are above 35%. It has been shown that any patient abdominal pain after CCK administration is related to the rate of CCK injection, rather than to any underlying gallbladder disease (Clinical Nuclear Medicine 2012; 37: 63-70. Journal of Nuclear Medicine 2014; 55: 1-9). IMPRESSION: Patent cystic duct. Normal gallbladder ejection fraction. Dictated by: Jhonny Torres M.D. on 10/02/2023 at 16:41 Approved by: Jhonny Torres M.D. on 10/02/2023 at 16:42
== END ==
PROVIDERS: Family Provider Nurse Practitioner; PCP Nurse Practitioner; Referring Provider Internal Medicine Gastroenterology; Visit Provider Internal Medicine Gastroenterology
DX: R11.0 Nausea (principal)
CPT/HCPCS: 78227; A9537; J2805